=== PATIENT | male | born 1970 | race American Indian/Alaskan Native ===

== ENCOUNTER 2017-10-19 09:24 | Emergency (ER) | payer SELFPAY ==
[2017-10-19 09:29] VITALS: BP 153/103
[2017-10-19] MEDS ORDERED: CLEOCIN IM ONE (10:00)
[2017-10-19] MEDS ORDERED: TORADOL IM ONE (10:00)
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
== END 2017-10-19 10:27 | disposition home or self-care (01) ==
LOC: ED 09:24
DX: K02.9 Dental caries, unspecified (principal); K05.00 Acute gingivitis, plaque induced; F17.200 Nicotine dependence, unspecified, uncomplicated; Z79.899 Other long term (current) drug therapy
CPT/HCPCS: 96372; 99282; J1885

== ENCOUNTER 2018-06-19 14:50 | Emergency (ER) | payer OTHER ==
[2018-06-19 16:06] VITALS: BP 193/110
--- NOTE | 2018-06-19 16:09 | Emergency Department Report ---
Blank Doc - Documentation Documentation: 47 y old male presents to Ed cc of generalized abd pain with vomitting that sta rted today. denies f/diarhea unusual food and liquid. labs ordered ACC evalutae
[2018-06-19 16:40] LABS: Basophils % (Auto) 0.2 % (0.0-1.8); Hematocrit 47.5 % (35.5-45.6); Hemoglobin 16.4 gm/dl (11.8-15.2); Lymphocytes # (Auto) 0.9 K/mm3 (1.2-5.4); Lymphocytes % (Auto) 9.5 % (13.4-35.0); Mean Corpuscular HGB Conc 35 % (32-34); Mean Corpuscular Volume 87 fl (84-94); Monocytes # (Auto) 0.4 K/mm3 (0.0-0.8); Monocytes % (Auto) 4.3 % (0.0-7.3); Platelet Count 244 K/mm3 (140-440)
[2018-06-19] MEDS ORDERED: ZOFRAN IV ONE ×2 (17:37→20:21)
[2018-06-19] MEDS ORDERED: PEPCID IV ONE (17:37)
[2018-06-19] MEDS ORDERED: NACL 0.9% 1000 ML 1,000 ML IV ONE (17:37)
[2018-06-19] MEDS ORDERED: BENTYL IM ONE (17:37)
[2018-06-19 17:43] LABS: Alanine Aminotransferase 34 units/L (7-56); Albumin 4.8 g/dL (3.9-5); BUN/Creatinine Ratio 18; Blood Urea Nitrogen 16 mg/dL (9-20); Calcium 10.1 mg/dL (8.4-10.2); Hemolysis Index 8
[2018-06-19] MEDS ORDERED: MORPHINE IV ONE ×2 (18:21→20:21)
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
[2018-06-19] MEDS ORDERED: MORPHINE ONE (20:25)
--- NOTE | 2018-06-19 21:17 | XRay Report ---
PROCEDURE: XR ABDOMEN 2V TECHNIQUE: Abdominal radiograph, single view. HISTORY: Nausea, Vomiting and Diarrhea COMPARISONS: None . FINDINGS: Bowel gas pattern: Nonobstructive . Masses or calcifications: There is been previous cholecystectomy. There is a 7 mm metallic foreign o bject overlying the upper mid abdomen, this is of uncertain etiology. . Bony structures: No significant abnormality . Other: None . IMPRESSION: The bowel gas pattern is nonobstructive.. This document is electronically signed by Chandni Maki DO., June 19 2018 09:15:37 PM ET
== END 2018-06-19 20:36 | disposition left against medical advice (07) ==
LOC: ED 14:50
DX: K86.1 Other chronic pancreatitis (principal)
CPT/HCPCS: 36415; 74019; 80053; 82150; 83690; 85025; 96372; 96374; 96375; 96376; 99284; G0480; J0500; J2270; J2405; J7030; 80320

== ENCOUNTER 2019-02-23 09:35 | Emergency (ER) | payer SELFPAY ==
[2019-02-23 10:01] LABS: Basophils % (Auto) 0.6 % (0.0-1.8); Eosinophils % (Auto) 0.1 % (0.0-4.3); Hematocrit 48.5 % (35.5-45.6); Lymphocytes # (Auto) 2.4 K/mm3 (1.2-5.4); Lymphocytes % (Auto) 36.8 % (13.4-35.0); Mean Corpuscular HGB Conc 33 % (32-34); Mean Corpuscular Volume 85 fl (84-94); Monocytes # (Auto) 0.5 K/mm3 (0.0-0.8); Monocytes % (Auto) 7.4 % (0.0-7.3); Platelet Count 251 K/mm3 (140-440); Red Cell Distribution Width 14.5 % (13.2-15.2)
[2019-02-23] MEDS ORDERED: hydrALAZINE 20 MG/1 ML INJ IV ONE (10:08)
[2019-02-23] MEDS ORDERED: SODIUM CHLORIDE 0.9% 500 ML 500 ML IV ONE (10:08)
[2019-02-23] MEDS ORDERED: ONDANSETRON 4 MG/2 ML INJ IV ONE (10:08)
[2019-02-23] MEDS ORDERED: MORPHINE 4 MG/1 ML INJ IV ONE (10:08)
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
[2019-02-23 10:25] LABS: Alanine Aminotransferase 24 units/L (7-56); Albumin 4.8 g/dL (3.9-5); BUN/Creatinine Ratio 14; Blood Urea Nitrogen 10 mg/dL (9-20); Calcium 10.1 mg/dL (8.4-10.2); Hemolysis Index 4
--- NOTE | 2019-02-23 12:44 | Cat Scan Report ---
CT ABDOMEN AND PELVIS WITH CONTRAST INDICATION / CLINICAL INFORMATION: abd pain n/v pancreatitis. TECHNIQUE: Axial CT images were obtained through the abdomen and pelvis after IV contrast. All CT scans at this location are performed using CT dose reduction for ALARA by means of automated exposure control. COMPARISON: None available. FINDINGS: LOWER CHEST: No significant abnormality. Pleural scarring left hemithorax LIVER: No significant abnormality. GALLBLADDER: Evidence of previous cholecystectomy BILE DUCTS: No significant abnormality. PANCREAS: Again noted calcifications have been consistent with chronic pancreatitis. Slight reticulat ion of fat is present surrounding the body and tail the pancreas which raises concern of acute pancre atitis SPLEEN: No significant abnormality. ADRENALS: No significant abnormality. RIGHT KIDNEY and URETER: No significant abnormality. LEFT KIDNEY and URETER: No significant abnormality. STOMACH and SMALL BOWEL: No significant abnormality. COLON: No significant abnormality. APPENDIX: No significant abnormality. PERITONEUM: No free fluid. No free air. No fluid collection. LYMPH NODES: No significant adenopathy. AORTA and ARTERIES: No significant abnormality. IVC and VEINS: No significant abnormality. URINARY BLADDER: No significant abnormality. REPRODUCTIVE ORGANS: No significant abnormality. ADDITIONAL FINDINGS: None. SKELETAL SYSTEM: No significant abnormality. IMPRESSION: 1. Questionable recurrent acute pancreatitis superimposed on chronic calcific pancreatitis 2. Previous cholecystectomy Signer Name: Matteo Wynn MD Signed: 02/23/2019 12:40 PM Workstation Name: [id number]
[2019-02-23 13:03] LABS: Bilirubin,Urine NEG (Negative); Blood,Urine MOD (Negative); Color,Urine Yellow (Yellow); Mucus,Urine FEW /HPF; Urobilinogen,Urine < 2.0 mg/dL (<2.0); WBC,Urine < 1.0 /HPF (0.0-6.0)
[2019-02-23 13:13] VITALS: BP 173/108
== END 2019-02-23 13:14 | disposition home or self-care (01) ==
LOC: ED 09:35
DX: K85.90 Acute pancreatitis without necrosis or infection, unspecified (principal); R11.2 Nausea with vomiting, unspecified; F17.200 Nicotine dependence, unspecified, uncomplicated; F10.10 Alcohol abuse, uncomplicated; Z79.899 Other long term (current) drug therapy
CPT/HCPCS: 36415; 74177; 80053; 81001; 82550; 83690; 83735; 85025; 93005; 93010; 96361; 96374; 96375; 99284; J0360; J2270; J2405; J7040; Q9967

== ENCOUNTER 2019-05-13 22:15 | Emergency (ER) | payer SELFPAY ==
[2019-05-14 00:07] LABS: Hemoglobin 16.1 gm/dl (11.8-15.2); Mean Corpuscular HGB Conc 34 % (32-34); Mean Corpuscular Volume 84 fl (84-94); Platelet Count 266 K/mm3 (140-440); Red Blood Count 5.69 M/mm3 (3.65-5.03)
[2019-05-14 00:18] LABS: Alanine Aminotransferase 24 units/L (7-56); Albumin 4.8 g/dL (3.9-5); BUN/Creatinine Ratio 9; Blood Urea Nitrogen 9 mg/dL (9-20); Calcium 10.7 mg/dL (8.4-10.2); Hemolysis Index 14
[2019-05-14] MEDS ORDERED: LIDOCAINE VISCOUS 2% 15 ML ORAL LIQD PO ONE (00:54)
[2019-05-14] MEDS ORDERED: ALUM-MAG HYDROXIDE-SIMETHICONE 200-200-20MG/5ML ORAL LIQD 30 ML PO ONE (00:54)
[2019-05-14] MEDS ORDERED: MORPHINE 4 MG/1 ML INJ IV ONE (00:54)
[2019-05-14] MEDS ORDERED: ONDANSETRON 4 MG/2 ML INJ IV ONE (00:54)
[2019-05-14] MEDS ORDERED: SODIUM CHLORIDE 0.9% 1000 ML 1,000 ML IV ONE (00:54)
[2019-05-14 01:23] LABS: Bilirubin,Urine NEG (Negative); Blood,Urine SM (Negative); Color,Urine Straw (Yellow); Protein,Urine <15 mg/dL mg/dL (Negative); Urobilinogen,Urine < 2.0 mg/dL (<2.0)
[2019-05-14 02:11] LABS: Eosinophils % (Manual) 0 % (0.0-4.3); Total Cells Counted 100
[2019-05-14 02:12] LABS: Burr Cells Few; Platelet Estimate Consistent w Auto
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
[2019-05-14 02:48] VITALS: BP 153/96
== END 2019-05-14 03:18 | disposition home or self-care (01) ==
LOC: ED 22:15
DX: R10.10 Upper abdominal pain, unspecified (principal); E72.51 Non-ketotic hyperglycinemia
CPT/HCPCS: 36415; 80053; 81001; 82962; 83690; 85007; 85025; 96361; 96374; 96375; 99284; J2270; J2405; J7030

== ENCOUNTER 2019-07-20 10:18 | Inpatient (IN) | payer OTHER ==
[2019-07-20] MEDS ORDERED: ONDANSETRON 4 MG/2 ML INJ ONE ×2 (10:28→17:34)
[2019-07-20] MEDS ORDERED: ONDANSETRON 4 MG/2 ML INJ IV ONE (10:34)
[2019-07-20] MEDS ORDERED: hydrALAZINE 20 MG/1 ML INJ IV ONE ×2 (10:37→14:01)
[2019-07-20] MEDS ORDERED: MORPHINE 4 MG/1 ML INJ IV ONE (10:37)
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
[2019-07-20 10:56] LABS: Basophils # (Auto) 0.1 K/mm3 (0.0-0.1); Basophils % (Auto) 0.7 % (0.0-1.8); Hematocrit 43.4 % (35.5-45.6); Hemoglobin 14.5 gm/dl (11.8-15.2); Lymphocytes # (Auto) 1.2 K/mm3 (1.2-5.4); Mean Corpuscular HGB Conc 33 % (32-34); Mean Corpuscular Volume 84 fl (84-94); Monocytes # (Auto) 0.4 K/mm3 (0.0-0.8); Monocytes % (Auto) 4.2 % (0.0-7.3); Platelet Count 234 K/mm3 (140-440); Red Blood Count 5.16 M/mm3 (3.65-5.03)
[2019-07-20 11:22] LABS: Alanine Aminotransferase 20 units/L (7-56); Albumin 4.8 g/dL (3.9-5); BUN/Creatinine Ratio 14; Bilirubin,Direct 0.2 mg/dL (0-0.2); Blood Urea Nitrogen 11 mg/dL (9-20); Calcium 9.8 mg/dL (8.4-10.2); Hemolysis Index 2
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
[2019-07-20] MEDS ORDERED: THIAMINE 100 MG, FOLIC ACID 1 MG, MULTIPLE VITAMIN INJ, ADULT 10 ML in SODIUM CHLORIDE ... IV ONE (12:00)
[2019-07-20] MEDS ORDERED: METOCLOPRAMIDE 10 MG/2 ML INJ ONE (12:16)
[2019-07-20] MEDS ORDERED: METOCLOPRAMIDE 10 MG/2 ML INJ IV ONE (12:19)
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
[2019-07-20] MEDS ORDERED: PIPERACIL/TAZOBACTA 4.5/NS 100 4.5 GM/100 ML VIAL IV ONE (14:15)
[2019-07-20 14:47] LABS: Bilirubin,Urine NEG (Negative); Blood,Urine MOD (Negative); Color,Urine Straw (Yellow); Mucus,Urine FEW /HPF; Protein,Urine <15 mg/dL mg/dL (Negative); Urobilinogen,Urine < 2.0 mg/dL (<2.0)
[2019-07-20] MEDS ORDERED: HYDROmorphone 1 MG/1 ML INJ IV PRN (16:44)
[2019-07-20] MEDS ORDERED: ACETAMINOPHEN 325 MG TAB PO PRN (16:44)
[2019-07-20] MEDS ORDERED: cloNIDine TTS 0.2 MG/24 HR PATCH TD SCH (17:00)
[2019-07-20] MEDS ORDERED: hydrALAZINE 20 MG/1 ML INJ ONE (17:34)
[2019-07-20] MEDS: ONDANSETRON 4 MG/2 ML INJ IV PRN (17:45)
[2019-07-20] MEDS: hydrALAZINE 20 MG/1 ML INJ IV PRN ×2 (17:47→22:35)
[2019-07-20] MEDS: D5W/0.9% NACL 1,000 ML IV SCH (18:34)
[2019-07-20] MEDS: HYDROmorphone 1 MG/1 ML INJ IV PRN ×2 (18:47→22:34)
[2019-07-20] MEDS: FAMOTIDINE 20 MG/2 ML INJ IV SCH (22:35)
[2019-07-21 04:45] LABS: Basophils % (Auto) 0.5 % (0.0-1.8); Hematocrit 43.3 % (35.5-45.6); Hemoglobin 14.6 gm/dl (11.8-15.2); Lymphocytes # (Auto) 1.8 K/mm3 (1.2-5.4); Lymphocytes % (Auto) 19.1 % (13.4-35.0); Mean Corpuscular HGB Conc 34 % (32-34); Mean Corpuscular Volume 84 fl (84-94); Monocytes # (Auto) 1.1 K/mm3 (0.0-0.8); Monocytes % (Auto) 11.5 % (0.0-7.3); Platelet Count 228 K/mm3 (140-440); Red Blood Count 5.15 M/mm3 (3.65-5.03); Red Cell Distribution Width 15.1 % (13.2-15.2)
[2019-07-21 05:04] LABS: Alanine Aminotransferase 15 units/L (7-56); Albumin 4.5 g/dL (3.9-5); BUN/Creatinine Ratio 13; Blood Urea Nitrogen 9 mg/dL (9-20); Calcium 9.1 mg/dL (8.4-10.2); Hemolysis Index 4
[2019-07-21] MEDS: HYDROmorphone 1 MG/1 ML INJ IV PRN ×4 (05:36→23:24)
[2019-07-21] MEDS: hydrALAZINE 20 MG/1 ML INJ IV PRN ×2 (05:37→23:24)
[2019-07-21] MEDS: ONDANSETRON 4 MG/2 ML INJ IV PRN ×2 (05:37→23:25)
[2019-07-21] MEDS: D5W/0.9% NACL 1,000 ML IV SCH ×3 (05:38→18:33)
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
[2019-07-21] MEDS ORDERED: LORazepam 2 MG/ML VIAL IV PRN ×2 (08:58)
[2019-07-21] MEDS: POTASSIUM CHLORIDE 10 MEQ 10 MEQ/100 ML BAG IV SCH (09:05)
[2019-07-21] MEDS: FAMOTIDINE 20 MG/2 ML INJ IV SCH ×2 (09:05→21:20)
[2019-07-21] MEDS: HEPARIN 5,000 UNIT/1 ML VIAL SUB-Q SCH ×2 (09:18→21:20)
[2019-07-21] MEDS: INSULIN LISPRO 100 UNIT/ML SUB-Q SCH ×3 (09:19→18:32)
--- NOTE | 2019-07-21 15:18 | Progress Note ---
Assessment and Plan Assessment and plan: Acute pancreatitis due to alcohol abuse Patient was kept n.p.o. Start full liquid diet Pain control IV normal saline for dehydration Lipase is in mid 900s Consult GI Type 2 diabetes mellitus Coverage for now Primary team to travel counselor him about this diabetes and the hemoglobin A1c being high 7.5 Primary team to initiate oral hypoglycemics at the time of discharge Dietitian consult regarding diet for diabetes Hypertensive urgency BP medications initiated and hydralazine 10 mg IV every 3 as needed for blood pressure more than 160/100 DVT prophylaxis On heparin and GI prophylaxis he feels better. Poss dc home tomorrow if less abd pain, tolerating diet. History Interval history: less abdominal pain Hospitalist Physical - Physical exam Narrative exam: GEN: Not in acute distress, obese, lying in bed HEENT: Normocephalic, atraumatic, Neck: supple, No JVD Lungs: Clear to auscultation bilaterally, heart;S1 and S2 reg, no murmurs, rubs or gallop Abd:soft, mild tender, no rebound, non distended, normal bowel sounds, Ext: No edema, no clubbing, no cyanosis, Neuro: Awake,alert,oriented X3 , no focal signs, - Constitutional Vitals: Temp Pulse Resp BP Pulse Ox 99.0 F 82 20 149/78 96 07/21/19 12:43 07/21/19 12:43 07/21/19 12:43 07/21/19 12:43 07/21/19 12:43 Results - Labs CBC & Chem 7: 07/21/19 03:49 07/22/19 04:34 Labs: Laboratory Last Values WBC 9.7 K/mm3 (4.5-11.0) 07/21/19 03:49 RBC 5.15 M/mm3 (3.65-5.03) H 07/21/19 03:49 Hgb 14.6 gm/dl (11.8-15.2) 07/21/19 03:49 Hct 43.3 % (35.5-45.6) 07/21/19 03:49 MCV 84 fl (84-94) 07/21/19 03:49 MCH 28 pg (28-32) 07/21/19 03:49 MCHC 34 % (32-34) 07/21/19 03:49 RDW 15.1 % (13.2-15.2) 07/21/19 03:49 Plt Count 228 K/mm3 (140-440) 07/21/19 03:49 Lymph % (Auto) 19.1 % (13.4-35.0) 07/21/19 03:49 [place] % (Auto) 11.5 % (0.0-7.3) H 07/21/19 03:49 Eos % (Auto) 0.0 % (0.0-4.3) 07/21/19 03:49 Baso % (Auto) 0.5 % (0.0-1.8) 07/21/19 03:49 Lymph # 1.8 K/mm3 (1.2-5.4) 07/21/19 03:49 [place] # 1.1 K/mm3 (0.0-0.8) H 07/21/19 03:49 Eos # 0.0 K/mm3 (0.0-0.4) 07/21/19 03:49 Baso # 0.0 K/mm3 (0.0-0.1) 07/21/19 03:49 Seg Neutrophils % 68.9 % (40.0-70.0) 07/21/19 03:49 Seg Neutrophils # 6.6 K/mm3 (1.8-7.7) 07/21/19 03:49 Sodium 136 mmol/L (137-145) L 07/21/19 03:49 Potassium 3.3 mmol/L (3.6-5.0) L 07/21/19 03:49 Chloride 99.1 mmol/L (98-107) 07/21/19 03:49 Carbon Dioxide 22 mmol/L (22-30) 07/21/19 03:49 Anion Gap 18 mmol/L 07/21/19 03:49 BUN 9 mg/dL (9-20) 07/21/19 03:49 Creatinine 0.7 mg/dL (0.8-1.5) L 07/21/19 03:49 Estimated GFR > 60 ml/min 07/21/19 03:49 BUN/Creatinine Ratio 13 % 07/21/19 03:49 Glucose 200 mg/dL (75-100) H 07/21/19 03:49 POC Glucose 150 (70-105) H 07/21/19 12:09 Hemoglobin A1c 7.2 % (4-6) H 07/21/19 03:49 Calcium 9.1 mg/dL (8.4-10.2) 07/21/19 03:49 Total Bilirubin 0.60 mg/dL (0.1-1.2) 07/21/19 03:49 Direct Bilirubin 0.2 mg/dL (0-0.2) 07/20/19 10:43 Indirect Bilirubin 0.6 mg/dL 07/20/19 10:43 AST 21 units/L (5-40) 07/21/19 03:49 ALT 15 units/L (7-56) 07/21/19 03:49 Alkaline Phosphatase 99 units/L (35-129) 07/21/19 03:49 Total Protein 7.5 g/dL (6.3-8.2) 07/21/19 03:49 Albumin 4.5 g/dL (3.9-5) 07/21/19 03:49 Albumin/Globulin Ratio 1.5 % 07/21/19 03:49 Lipase 510 units/L (13-60) H 07/21/19 03:49 Urine Color Straw (Yellow) 07/20/19 14:10 Urine Turbidity Clear (Clear) 07/20/19 14:10 Urine pH 5.0 (5.0-7.0) 07/20/19 14:10 Ur Specific [place] 1.045 (1.003-1.030) H 07/20/19 14:10 Urine Protein <15 mg/dl mg/dL (Negative) 07/20/19 14:10 Urine Glucose (UA) Neg mg/dL (Negative) 07/20/19 14:10 Urine Ketones Tr mg/dL (Negative) 07/20/19 14:10 Urine Blood Mod (Negative) 07/20/19 14:10 Urine Nitrite Neg (Negative) 07/20/19 14:10 Urine Bilirubin Neg (Negative) 07/20/19 14:10 Urine Urobilinogen < 2.0 mg/dL (<2.0) 07/20/19 14:10 Ur Leukocyte Esterase Neg (Negative) 07/20/19 14:10 Urine WBC (Auto) 2.0 /HPF (0.0-6.0) 07/20/19 14:10 Urine RBC (Auto) 16.0 /HPF (0.0-6.0) 07/20/19 14:10 U Epithel Cells (Auto) < 1.0 /HPF (0-13.0) 07/20/19 14:10 Urine Mucus Few /HPF 07/20/19 14:10 Plasma/Serum Alcohol < 0.01 % (0-0.07) 07/20/19 11:04 [place]/IV: Voiding Method Urinal IV Catheter Type [Right Peripheral IV Antecubital] Active Medications - Current Medications Current Medications: Generic Name Dose Route Start Last Admin Trade Name Freq PRN Reason Stop Dose Admin Acetaminophen 650 mg 07/20/19 16:44 Tylenol PO Q4H PRN Pain MILD(1-3)/Fever >100.5/WOODS Clonidine HCl 0.2 mg 07/20/19 17:00 07/20/19 17:46 Catapres-Tts Patch TD 0.2 mg Tu CHERYL Administration Famotidine 20 mg 07/20/19 22:00 07/21/19 09:05 Pepcid IV 20 mg BID CHERYL Administration Heparin Sodium (Porcine) 5,000 unit 07/21/19 10:00 07/21/19 09:18 Heparin SUB-Q 5,000 unit Q12HR CHERYL Administration Hydralazine HCl 10 mg 07/20/19 16:47 07/21/19 05:37 Apresoline IV 10 mg Q3H PRN Administration HTN >160/100 Hydromorphone HCl 0.25 mg 07/20/19 16:44 Dilaudid IV Q3H PRN Pain, Moderate (4-6) Hydromorphone HCl 1 mg 07/20/19 16:44 07/21/19 14:57 Dilaudid IV 1 mg Q3H PRN Administration Pain , Severe (7-10) Dextrose/Sodium Chloride 1,000 mls @ 100 mls/hr 07/20/19 17:00 07/21/19 05:38 D5ns IV 100 mls/hr DIRECT CHERYL Administration Insulin Human Lispro 0 unit 07/21/19 09:00 07/21/19 12:22 Humalog SUB-Q Not Given Q6HR CHERYL Protocol Lorazepam 2 mg 07/21/19 08:58 Ativan IV Q1H PRN CIWA-Ar 8-15 Lorazepam 4 mg 07/21/19 08:58 Ativan IV Q1H PRN CIWA-Ar 16-25 Ondansetron HCl 4 mg 07/20/19 16:44 07/21/19 05:37 Zofran IV 4 mg Q8H PRN Administration Nausea And Vomiting Sodium Chloride 10 ml 07/20/19 22:00 07/21/19 09:05 Sodium Chloride Flush Syringe 10 Ml IV 10 ml BID CHERYL Administration Sodium Chloride 10 ml 07/20/19 16:44 Sodium Chloride Flush Syringe 10 Ml IV PRN PRN LINE FLUSH Nutrition/Malnutrition Assess - Dietary Evaluation Nutrition/Malnutrition Findings: Nutrition Notes Start: 07/21/19 13:43 Freq: Status: Active Protocol: Document 07/21/19 13:43 LM (Rec: 07/21/19 13:57 LM [id number]) Nutrition Notes Need for Assessment generated from: MD Order Current Diagnosis Hypertension Other Pertinent Diagnosis acute pancreatitis, ETOH dependence Current Diet Full liquid Labs/Tests Na 136 K 3.3 BG 200 Pertinent Medications Humalog KCl at 100ml/hr Height 5 ft 9 in Weight 83.46 kg [place] Body Weight (kg) 72.72 BMI 27.1 Weight Status Overweight Subjective/Other Information MD consult for diet education and ONS. Pt NPO at time of assessment. 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 UBW is between 180- 190lb. Pt not interested in diet education at this time. Will order Glucerna for pt. Burn Absent Trauma Absent Current % PO Negligible Minimum of two criteria No physical signs of malnutrition #1 Nutrition Diagnosis Inadequate oral intake Etiology acute pancreatitis As Evidenced by Signs and Symptoms pt on full liquid diet Is patient on ventilator? No Is Patient Ambulatory and/or Out of Bed Yes REE-([facility]-ambulatory/OOB) [ [id number] [id number]] Calculation Used for Recommendations [facility] Additional Notes Protein: 66-83g (0.8-1g/kg) Fluid: 1 ml/kcal Nutrition Intervention Change Diet Order: continue full liquid until able to advance diet Add Supplement/Snack (indicate name/kcal Glucerna daily /protein ) Provides kCal: 220 Provides Protein (gm) 10 Goal #1 Diet advancement Anticipated Discharge Needs: consistent CHO Follow-Up By: 07/23/19 Additional Comments F/U for diet advancement intakes
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
[2019-07-21] MEDS: metFORMIN 500 MG TAB PO SCH ×2 (18:32→21:27)
[2019-07-21] MEDS ORDERED: NON-FORMULARY EACH (Famotidine [Pepcid] 40 MG) PO SCH (22:00)
[2019-07-21] MEDS ORDERED: FAMOTIDINE 20 MG TAB PO SCH (22:00)
[2019-07-22] MEDS: INSULIN LISPRO 100 UNIT/ML SUB-Q SCH ×3 (00:53→13:50)
[2019-07-22 05:14] LABS: BUN/Creatinine Ratio 10; Blood Urea Nitrogen 7 mg/dL (9-20); Calcium 9.1 mg/dL (8.4-10.2); Hemolysis Index 4
[2019-07-22] MEDS: HYDROmorphone 1 MG/1 ML INJ IV PRN ×2 (05:55→13:49)
[2019-07-22] MEDS: HEPARIN 5,000 UNIT/1 ML VIAL SUB-Q SCH (09:38)
[2019-07-22] MEDS: FAMOTIDINE 20 MG/2 ML INJ IV SCH (09:39)
[2019-07-22] MEDS: metFORMIN 500 MG TAB PO SCH (09:39)
--- NOTE | 2019-07-22 10:23 | Discharge Summary ---
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 2.Avoid alcohol Follow up with: PRIMARY CARE,MD [Primary Care Provider] - 3-5 Days Prescriptions: traMADoL [Ultram 50 MG tab] 50 mg PO Q6HR PRN #10 tablet PRN Reason: Pain
[2019-07-22 12:52] VITALS: BP 146/91
[2019-07-22] MEDS: ONDANSETRON 4 MG/2 ML INJ IV PRN (13:49)
== END 2019-07-22 15:26 | disposition home or self-care (01) | DRG 440 ==
LOC: ED 10:18 → 4A 14:21
PROVIDERS: ADMIT Internal Medicine; ATTEND Internal Medicine
DX: K85.20 Alcohol induced acute pancreatitis without necrosis or infection (principal); I16.0 Hypertensive urgency; F17.210 Nicotine dependence, cigarettes, uncomplicated; F10.20 Alcohol dependence, uncomplicated; Y90.9 Presence of alcohol in blood, level not specified; E11.9 Type 2 diabetes mellitus without complications; Z90.49 Acquired absence of other specified parts of digestive tract; Z82.49 Family history of ischemic heart disease and other diseases of the circulatory system
CPT/HCPCS: 36415; 74019; 74177; 80048; 80053; 80076; 80320; 81001; 82962; 83036; 83690; 85025; G0378; G0480; J0360; J1170; J1644; J2270; J2405; J2543; J2765; J3411; J3480; J7030; J7042; Q9967

== ENCOUNTER 2019-11-04 17:00 | Emergency (ER) | payer SELFPAY ==
[2019-11-04 18:04] LABS: Basophils # (Auto) 0.1 K/mm3 (0.0-0.1); Basophils % (Auto) 0.8 % (0.0-1.8); Eosinophils % (Auto) 0.1 % (0.0-4.3); Hemoglobin 14.9 gm/dl (11.8-15.2); Lymphocytes % (Auto) 27.8 % (13.4-35.0); Mean Corpuscular HGB Conc 34 % (32-34); Mean Corpuscular Volume 85 fl (84-94); Monocytes # (Auto) 0.5 K/mm3 (0.0-0.8); Monocytes % (Auto) 7.8 % (0.0-7.3); Platelet Count 269 K/mm3 (140-440); Red Blood Count 5.21 M/mm3 (3.65-5.03); Red Cell Distribution Width 14.5 % (13.2-15.2)
[2019-11-04 18:24] LABS: Alanine Aminotransferase 78 units/L (7-56); Albumin 4.6 g/dL (3.9-5); BUN/Creatinine Ratio 9; Blood Urea Nitrogen 18 mg/dL (9-20); Calcium 10.1 mg/dL (8.4-10.2); Hemolysis Index 59
[2019-11-05] MEDS ORDERED: SODIUM CHLORIDE 0.9% 1000 ML 1,000 ML IV ONE ×3 (03:11→04:09)
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
[2019-11-05] MEDS ORDERED: FUROSEMIDE 20 MG/2 ML INJ IV ONE (04:09)
[2019-11-05 05:32] LABS: Bilirubin,Urine NEG (Negative); Blood,Urine NEG (Negative); Color,Urine Yellow (Yellow); Protein,Urine <15 mg/dL mg/dL (Negative); Urobilinogen,Urine < 2.0 mg/dL (<2.0)
[2019-11-05 06:32] LABS: BUN/Creatinine Ratio 14; Blood Urea Nitrogen 17 mg/dL (9-20); Hemolysis Index 10
[2019-11-05 06:56] VITALS: BP 155/109
== END 2019-11-05 07:07 | disposition home or self-care (01) ==
LOC: ED 17:00
DX: E11.65 Type 2 diabetes mellitus with hyperglycemia (principal); E86.0 Dehydration; N28.9 Disorder of kidney and ureter, unspecified; I10 Essential (primary) hypertension; F17.200 Nicotine dependence, unspecified, uncomplicated; Z79.899 Other long term (current) drug therapy
CPT/HCPCS: 36415; 80048; 80053; 81001; 82805; 82962; 84484; 85025; 93005; 96361; 96374; 99284; J1940; J7030

== ENCOUNTER 2020-05-29 14:03 | Inpatient (IN) | payer OTHER ==
--- NOTE | 2020-05-29 15:20 | Emergency Department Report ---
Blank Doc - Documentation Documentation: This is a 49-year-old male that presents with generalized body aches, dark-col ored urine, abdominal pain with nausea vomiting times several days. Patient has history of diabetes, pancreatitis. Patient stated had alcoholic beverage. 1- This initial assessment/diagnostic orders/clinical plan/ treatment(s) is/are subject to change based on pt's health status, clinical progression and re- assessment by fellow clinical providers in the ED. Further treatment and workup at subsequent clinical provers discretion. Patient/guardians urged not to elope from ED as their condition may be serious if not clinically assessed and managed. 2-labs 3-UA
[2020-05-29 15:52] LABS: Basophils # (Auto) 0.1 K/mm3 (0.0-0.1); Basophils % (Auto) 0.6 % (0.0-1.8); Eosinophils % (Auto) 0.1 % (0.0-4.3); Hematocrit 53.3 % (35.5-45.6); Hemoglobin 17.8 gm/dl (11.8-15.2); Lymphocytes # (Auto) 2.5 K/mm3 (1.2-5.4); Mean Corpuscular HGB Conc 33 % (32-34); Mean Corpuscular Volume 87 fl (84-94); Monocytes # (Auto) 0.7 K/mm3 (0.0-0.8); Platelet Count 253 K/mm3 (140-440); Red Blood Count 6.15 M/mm3 (3.65-5.03); Red Cell Distribution Width 13.7 % (13.2-15.2)
[2020-05-29 16:13] LABS: Alanine Aminotransferase 14 units/L (7-56); Albumin 4.5 g/dL (3.9-5); BUN/Creatinine Ratio 12; Blood Urea Nitrogen 11 mg/dL (9-20); Calcium 10.4 mg/dL (8.4-10.2); Hemolysis Index 4
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
[2020-05-29] MEDS ORDERED: fentaNYL 100 MCG/2 ML INJ IV ONE ×2 (19:01→21:11)
[2020-05-29] MEDS ORDERED: SODIUM CHLORIDE 0.9% 1000 ML 1,000 ML IV ONE ×2 (19:01→19:05)
[2020-05-29] MEDS ORDERED: ONDANSETRON 4 MG/2 ML INJ IV ONE (19:01)
[2020-05-29 20:00] LABS: Bilirubin,Urine NEG (Negative); Blood,Urine MOD (Negative); Color,Urine Amber (Yellow); Urobilinogen,Urine < 2.0 mg/dL (<2.0)
--- NOTE | 2020-05-29 20:00 | History and Physical Report ---
History of Present Illness Date of admission: 05/29/20 19:04 History of present illness: The patient is a 49-year-old male present with a chief complaint of abdominal pain. The patient states 2 days ago after drinking 2-3 beers and eating salad he developed periumbilical abdominal pain described as an intermittent cramping. Patient states he developed nausea and vomiting. Patient states his symptoms persisted the following day and today prompting him to come to the emergency department. Patient states he was diagnosed with pancreatitis 2 times in the past most recent which occurred last year Past History Past Medical History: hyperlipidemia Medications and Allergies Allergies Allergy/AdvReac Type Severity Reaction Status Date / Time No Known Allergies Allergy Verified 11/04/19 17:08 Home Medications Medication Instructions Recorded Confirmed Last Taken Type Famotidine [Pepcid] 20 mg PO BID #13 tablet 10/29/19 05/29/20 Unknown Rx Lisinopril [Zestril] 5 mg PO DAILY 05/29/20 05/29/20 Unknown History metFORMIN [Glucophage] 500 mg PO DAILY 05/29/20 05/29/20 Unknown History Active Meds: Active Medications Sodium Chloride (Nacl 0.9% 1000 Ml) 1,000 mls @ 999 mls/hr IV ONCE ONE Stop: 05/29/20 20:01 Last Admin: 05/29/20 19:45 Dose: 999 mls/hr Documented by: Sodium Chloride (Nacl 0.9% 1000 Ml) 1,000 mls @ 125 mls/hr IV ONCE ONE Stop: 05/30/20 03:04 Last Admin: 05/29/20 19:45 Dose: 125 mls/hr Documented by: Exam - Constitutional Vitals: Temp Pulse Resp BP Pulse Ox 98.4 F 73 16 149/108 99 05/29/20 15:08 05/29/20 18:29 05/29/20 18:29 05/29/20 18:29 05/29/20 18:29 General appearance: Present: no acute distress, well-nourished - EENT Eyes: Present: PERRL ENT: hearing intact, clear oral mucosa - Neck Neck: Present: supple, normal ROM - Respiratory Respiratory effort: normal Respiratory: bilateral: CTA - Cardiovascular Heart Sounds: Present: S1 & S2. Absent: rub, click - Extremities Extremities: pulses symmetrical, No edema Peripheral Pulses: within normal limits - Abdominal General gastrointestinal: Present: soft, non-tender, non-distended, normal bowel sounds Male genitourinary: Present: normal - Integumentary Integumentary: Present: clear, warm, dry - Musculoskeletal Musculoskeletal: gait normal, strength equal bilaterally - Psychiatric Psychiatric: appropriate mood/affect, intact judgment & insight - Neurologic Neurologic: CNII-XII intact, moves all extremities Results - Labs CBC & Chem 7: 05/29/20 15:23 05/29/20 15:23 Labs: Abnormal lab results 05/29/20 05/29/20 05/29/20 Range/Units 15:23 15:23 15:23 RBC 6.15 H (3.65-5.03) M/mm3 Hgb 17.8 H (11.8-15.2) gm/dl Hct 53.3 H (35.5-45.6) % [place] % (Auto) 8.0 H (0.0-7.3) % Sodium 135 L (137-145) mmol/L Chloride 96.1 L (98-107) mmol/L Glucose 164 H (75-100) mg/dL Calcium 10.4 H (8.4-10.2) mg/dL Total Creatine Kinase 174 H (55-170) units/L Total Protein 8.3 H (6.3-8.2) g/dL Lipase 371 H (13-60) units/L Assessment and Plan - Patient Problems (1) Acute abdominal pain Current Visit: Yes Status: Acute
[2020-05-29 20:07] LABS: Mucus,Urine 3+ /HPF
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
[2020-05-29] MEDS ORDERED: traMADol 50 MG TAB PO PRN (20:41)
[2020-05-29] MEDS ORDERED: traZODone 50 MG TAB PO PRN (20:41)
[2020-05-29] MEDS ORDERED: ONDANSETRON 4 MG/2 ML INJ IV PRN ×2 (20:44→20:47)
[2020-05-29] MEDS ORDERED: ALUM-MAG HYDROXIDE-SIMETHICONE 200-200-20MG/5ML ORAL LIQD 30 ML PO PRN (20:44)
[2020-05-29] MEDS ORDERED: SENNOSIDES 8.6 MG TAB PO PRN (20:47)
[2020-05-29] MEDS ORDERED: ACETAMINOPHEN 325 MG TAB PO PRN (20:47)
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
[2020-05-29] MEDS: hydrALAZINE 20 MG/1 ML INJ IV PRN ×2 (22:06→23:04)
[2020-05-30] MEDS: FAMOTIDINE 20 MG/2 ML INJ IV SCH ×3 (01:22→21:59)
[2020-05-30] MEDS: MORPHINE 2 MG/1 ML INJ IV PRN ×3 (04:43→19:46)
[2020-05-30 05:03] LABS: Basophils % (Auto) 0.6 % (0.0-1.8); Hematocrit 48.7 % (35.5-45.6); Hemoglobin 16.7 gm/dl (11.8-15.2); Lymphocytes # (Auto) 2.1 K/mm3 (1.2-5.4); Lymphocytes % (Auto) 26.6 % (13.4-35.0); Mean Corpuscular HGB Conc 34 % (32-34); Mean Corpuscular Volume 85 fl (84-94); Monocytes # (Auto) 0.7 K/mm3 (0.0-0.8); Monocytes % (Auto) 8.3 % (0.0-7.3); Platelet Count 225 K/mm3 (140-440); Red Blood Count 5.71 M/mm3 (3.65-5.03); Red Cell Distribution Width 13.5 % (13.2-15.2)
[2020-05-30 05:19] LABS: Alanine Aminotransferase 22 units/L (7-56); Blood Urea Nitrogen 9 mg/dL (9-20); Calcium 9.3 mg/dL (8.4-10.2); Hemolysis Index 44
[2020-05-30 05:20] LABS: BUN/Creatinine Ratio 13
[2020-05-30] MEDS: INSULIN REGULAR, HUMAN 100 UNITS/1 ML SUB-Q SCH ×3 (07:00→22:00)
[2020-05-30] MEDS: SODIUM CHLORIDE 0.9% 1000 ML 1,000 ML IV SCH ×2 (07:21→16:55)
[2020-05-30] MEDS ORDERED: ENOXAPARIN 30 MG/0.3 ML INJ SUB-Q SCH (10:00)
[2020-05-30] MEDS: ENOXAPARIN 40 MG/0.4 ML INJ SUB-Q SCH (10:08)
[2020-05-30] MEDS: LISINOPRIL 5 MG TAB PO SCH (10:08)
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
[2020-05-31] MEDS: MORPHINE 2 MG/1 ML INJ IV PRN ×3 (02:05→17:18)
[2020-05-31] MEDS: hydrALAZINE 20 MG/1 ML INJ IV PRN (02:05)
[2020-05-31] MEDS: INSULIN REGULAR, HUMAN 100 UNITS/1 ML SUB-Q SCH ×3 (07:51→17:28)
[2020-05-31] MEDS: SODIUM CHLORIDE 0.9% 1000 ML 1,000 ML IV SCH ×2 (07:56)
[2020-05-31] MEDS: LISINOPRIL 5 MG TAB PO SCH (09:17)
[2020-05-31] MEDS: FAMOTIDINE 20 MG/2 ML INJ IV SCH (09:50)
[2020-05-31] MEDS: ENOXAPARIN 40 MG/0.4 ML INJ SUB-Q SCH (09:50)
[2020-05-31 11:39] LABS: BUN/Creatinine Ratio 13; Blood Urea Nitrogen 10 mg/dL (9-20); Hemolysis Index 43
[2020-05-31 12:18] VITALS: BP 144/90
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
== END 2020-05-31 18:10 | disposition home or self-care (01) | DRG 439 ==
LOC: ED 14:03 → 3A 19:04 → 4A 23:28
PROVIDERS: ADMIT Internal Medicine; ATTEND Internal Medicine
DX: K85.90 Acute pancreatitis without necrosis or infection, unspecified (principal); E87.1 Hypo-osmolality and hyponatremia; I10 Essential (primary) hypertension; E11.9 Type 2 diabetes mellitus without complications; K21.9 Gastro-esophageal reflux disease without esophagitis; E78.5 Hyperlipidemia, unspecified; Z79.899 Other long term (current) drug therapy; Z82.49 Family history of ischemic heart disease and other diseases of the circulatory system
CPT/HCPCS: 36415; 74177; 80048; 80053; 80320; 81001; 82550; 82805; 82962; 83036; 83690; 85025; G0378; G0480; J0360; J1650; J2270; J2405; J3010; J7030; Q9967

== ENCOUNTER 2020-06-27 19:45 | Emergency (ER) | payer SELFPAY ==
[2020-06-27 21:07] VITALS: BP 114/67
== END 2020-06-28 03:20 | disposition left against medical advice (07) ==
LOC: ED 19:45
DX: R73.9 Hyperglycemia, unspecified (principal); Z53.21 Procedure and treatment not carried out due to patient leaving prior to being seen by health care provider
CPT/HCPCS: 82962

== ENCOUNTER 2020-06-28 21:05 | Emergency (ER) | payer SELFPAY ==
--- NOTE | 2020-06-28 22:50 | Event Note ---
ED Screening Note ED Screening Note: states he is unable to get his BG under control states he is taking metformin only once daily no fever no n/v/d states he has been having lightheadedness, blurry vision, and generalized weakness for a few days states his BG was 500 at work This initial assessment/diagnostic orders/clinical plan/treatment(s) is/are subject to change based on patients health status, clinical progression and re- assessment by fellow clinical providers in the ED. Further treatment and workup at subsequent clinical providers discretion. Patient/guardian urged not to elope from the ED as their condition may be serious if not clinically assessed and managed. Initial orders include: labs, EKG, UA
[2020-06-28 23:29] LABS: Hematocrit 44.9 % (35.5-45.6); Hemoglobin 15.6 gm/dl (11.8-15.2); Mean Corpuscular HGB Conc 35 % (32-34); Mean Corpuscular Volume 84 fl (84-94); Platelet Count 216 K/mm3 (140-440); Red Blood Count 5.35 M/mm3 (3.65-5.03); Red Cell Distribution Width 13.2 % (13.2-15.2)
[2020-06-28 23:50] LABS: Alanine Aminotransferase 19 units/L (7-56); Albumin 4.4 g/dL (3.9-5); BUN/Creatinine Ratio 19; Blood Urea Nitrogen 19 mg/dL (9-20); Calcium 9.4 mg/dL (8.4-10.2); Hemolysis Index 20
[2020-06-29] MEDS ORDERED: INSULIN REGULAR, HUMAN 100 UNITS/1 ML IV ONE (00:40)
[2020-06-29] MEDS ORDERED: SODIUM CHLORIDE 0.9% 1000 ML 1,000 ML IV ONE (00:40)
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
[2020-06-29 02:41] LABS: Bilirubin,Urine NEG (Negative); Blood,Urine MOD (Negative); Color,Urine Straw (Yellow); Mucus,Urine FEW /HPF; Protein,Urine <15 mg/dL mg/dL (Negative); Urobilinogen,Urine < 2.0 mg/dL (<2.0); WBC,Urine < 1.0 /HPF (0.0-6.0)
[2020-06-29 02:56] VITALS: BP 116/78
[2020-06-29 04:38] LABS: Total Cells Counted 100
[2020-06-29 04:39] LABS: Anisocytosis Few; Platelet Estimate Consistent w Auto; Target Cells Few
--- NOTE | 2020-06-30 10:46 | Electrocardiograph Report ---
[facility] Test Date: 2020-06-29 Test Time: 00:39:30 Pat Name: YOJANA WILDER Department: Room: Gender: M Jacquard [employer] Weaver: : 1970 Requested By: CARLINE ARMENDARIZ Order Number: [id number] Reading MD: Salima Feliz Measurements Intervals [place] Rate: 108 P: 66 UT: 153 QRS: 32 QRSD: 65 T: 41 QT: 321 QTc: 432 Interpretive Statements Sinus tachycardia No previous ECG available for comparison Electronically Signed On 06-30-2020 10:45:29 EDT by Salima Feliz
== END 2020-06-29 02:55 | disposition home or self-care (01) ==
LOC: ED 21:05
DX: E11.65 Type 2 diabetes mellitus with hyperglycemia (principal); I10 Essential (primary) hypertension; F17.200 Nicotine dependence, unspecified, uncomplicated; Z79.899 Other long term (current) drug therapy; Z98.890 Other specified postprocedural states
CPT/HCPCS: 36415; 80053; 81001; 82550; 82962; 83690; 83735; 85007; 85025; 93005; 96361; 96374; 99283; J7030; J1815

== ENCOUNTER 2020-09-27 14:52 | Emergency (ER) | payer SELFPAY ==
[2020-09-27 16:01] VITALS: BP 175/102
[2020-09-27 16:32] LABS: Basophils # (Auto) 0.2 K/mm3 (0.0-0.1); Basophils % (Auto) 2.8 % (0.0-1.8); Eosinophils % (Auto) 0.2 % (0.0-4.3); Hematocrit 40.8 % (35.5-45.6); Hemoglobin 13.6 gm/dl (11.8-15.2); Lymphocytes # (Auto) 2.3 K/mm3 (1.2-5.4); Mean Corpuscular HGB Conc 33 % (32-34); Mean Corpuscular Volume 88 fl (84-94); Monocytes # (Auto) 0.5 K/mm3 (0.0-0.8); Monocytes % (Auto) 6.4 % (0.0-7.3); Platelet Count 287 K/mm3 (140-440); Red Blood Count 4.63 M/mm3 (3.65-5.03); Red Cell Distribution Width 15.3 % (13.2-15.2)
[2020-09-27 16:35] LABS: Alanine Aminotransferase 13 units/L (7-56); Albumin 4.4 g/dL (3.9-5); Blood Urea Nitrogen 9 mg/dL (9-20); Hemolysis Index 21
[2020-09-27 16:37] LABS: BUN/Creatinine Ratio 13
[2020-09-27 17:06] LABS: Bilirubin,Urine NEG (Negative); Blood,Urine MOD (Negative); Color,Urine Yellow (Yellow); Hyaline Casts,Urine 3 /LPF; Protein,Urine <15 mg/dL mg/dL (Negative); Urobilinogen,Urine < 2.0 mg/dL (<2.0)
[2020-09-27] MEDS ORDERED: ONDANSETRON 4 MG ODT TAB PO ONE (22:21)
[2020-09-27] MEDS ORDERED: DICYCLOMINE 10 MG/5 ML ORAL LIQD PO ONE (22:21)
[2020-09-27] MEDS ORDERED: FAMOTIDINE 20 MG TAB PO ONE (22:21)
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
== END 2020-09-28 00:15 | disposition home or self-care (01) ==
LOC: ED 14:52
DX: K52.9 Noninfective gastroenteritis and colitis, unspecified (principal); E11.9 Type 2 diabetes mellitus without complications; I10 Essential (primary) hypertension; F17.200 Nicotine dependence, unspecified, uncomplicated; Z79.899 Other long term (current) drug therapy
CPT/HCPCS: 36415; 80053; 81001; 85025; 99283; Q0162

== ENCOUNTER 2020-10-26 15:42 | Emergency (ER) | payer SELFPAY ==
[2020-10-26 17:06] VITALS: BP 127/68
[2020-10-26 17:28] LABS: Bilirubin,Urine NEG (Negative); Blood,Urine SM (Negative); Color,Urine Yellow (Yellow); Mucus,Urine FEW /HPF; Protein,Urine <15 mg/dL mg/dL (Negative); Urobilinogen,Urine < 2.0 mg/dL (<2.0)
[2020-10-26 17:48] LABS: Basophils # (Auto) 0.1 K/mm3 (0.0-0.1); Basophils % (Auto) 1.2 % (0.0-1.8); Eosinophils % (Auto) 0.4 % (0.0-4.3); Hematocrit 41.5 % (35.5-45.6); Hemoglobin 13.8 gm/dl (11.8-15.2); Lymphocytes # (Auto) 2.9 K/mm3 (1.2-5.4); Mean Corpuscular HGB Conc 33 % (32-34); Mean Corpuscular Volume 88 fl (84-94); Monocytes # (Auto) 0.5 K/mm3 (0.0-0.8); Monocytes % (Auto) 8.1 % (0.0-7.3); Platelet Count 264 K/mm3 (140-440); Red Blood Count 4.72 M/mm3 (3.65-5.03); Red Cell Distribution Width 14.3 % (13.2-15.2)
[2020-10-26 18:06] LABS: Alanine Aminotransferase 11 units/L (7-56); Albumin 4.4 g/dL (3.9-5); Blood Urea Nitrogen 8 mg/dL (9-20); Calcium 10.1 mg/dL (8.4-10.2); Hemolysis Index 18
[2020-10-26 18:12] LABS: BUN/Creatinine Ratio 11
[2020-10-26] MEDS ORDERED: SODIUM CHLORIDE 0.9% 1000 ML 1,000 ML IV ONE (20:07)
[2020-10-26] MEDS ORDERED: ONDANSETRON 4 MG/2 ML INJ IV ONE (20:07)
[2020-10-26] MEDS ORDERED: FAMOTIDINE 20 MG/2 ML INJ IV ONE (20:07)
[2020-10-26] MEDS ORDERED: PROCHLORPERAZINE EDISYLATE 10 MG/2 ML VIAL IV ONE (21:49)
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
== END 2020-10-26 23:55 | disposition home or self-care (01) ==
LOC: ED 15:42
DX: A08.4 Viral intestinal infection, unspecified (principal); I10 Essential (primary) hypertension; E11.9 Type 2 diabetes mellitus without complications; F17.200 Nicotine dependence, unspecified, uncomplicated
CPT/HCPCS: 36415; 80053; 81001; 82962; 85025; 96361; 96374; 96375; 99283; J0780; J2405; J7030

== ENCOUNTER 2020-11-03 08:14 | Emergency (ER) | payer SELFPAY ==
[2020-11-03 08:55] VITALS: BP 117/75
[2020-11-03 09:45] LABS: Basophils # (Auto) 0.1 K/mm3 (0.0-0.1); Basophils % (Auto) 1.2 % (0.0-1.8); Hematocrit 41.8 % (35.5-45.6); Hemoglobin 14.4 gm/dl (11.8-15.2); Lymphocytes # (Auto) 1.4 K/mm3 (1.2-5.4); Lymphocytes % (Auto) 33.6 % (13.4-35.0); Mean Corpuscular HGB Conc 35 % (32-34); Mean Corpuscular Volume 87 fl (84-94); Monocytes # (Auto) 0.4 K/mm3 (0.0-0.8); Monocytes % (Auto) 9.7 % (0.0-7.3); Platelet Count 288 K/mm3 (140-440); Red Blood Count 4.79 M/mm3 (3.65-5.03); Red Cell Distribution Width 13.9 % (13.2-15.2)
[2020-11-03 09:51] LABS: Alanine Aminotransferase 424 units/L (7-56); Albumin 4.4 g/dL (3.9-5); BUN/Creatinine Ratio 15; Blood Urea Nitrogen 15 mg/dL (9-20); Calcium 10.3 mg/dL (8.4-10.2); Hemolysis Index 5
[2020-11-03] MEDS ORDERED: MORPHINE 4 MG/1 ML INJ IV ONE (10:18)
[2020-11-03] MEDS ORDERED: SODIUM CHLORIDE 0.9% 1000 ML 1,000 ML IV ONE ×2 (10:18→15:00)
[2020-11-03] MEDS ORDERED: ONDANSETRON 4 MG/2 ML INJ IV ONE (10:18)
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
[2020-11-03 12:38] LABS: Hepatitis C Virus Antibody Non-Reactive (NonReactive)
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
[2020-11-03 13:45] LABS: Hepatitis B Surface Antigen Nonreactive (Negative)
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
[2020-11-03] MEDS ORDERED: SODIUM CHLORIDE 0.9% 1000 ML 3,000 ML IV ONE (14:51)
--- NOTE | 2020-11-03 20:26 | Event Note ---
Date: 11/03/20 50-year-old male with alcohol dependence complicated by chronic pancreatitis presents to ED for evaluation of abdominal pain. Patient seen and evaluated in the emergency department. All lab and imaging were reviewed. Patient counseled regarding alcohol cessation. Patient acknowledges understanding instructions. Patient left AMA prior to completion of diagnostic testing. Patient informed of risk of worsening symptoms and even . Patient knowledges understanding instructions. Patient left AMA.
== END 2020-11-03 19:01 | disposition left against medical advice (07) ==
LOC: ED 08:14
DX: K85.10 Biliary acute pancreatitis without necrosis or infection (principal); I10 Essential (primary) hypertension; E11.9 Type 2 diabetes mellitus without complications; F17.200 Nicotine dependence, unspecified, uncomplicated; Z79.899 Other long term (current) drug therapy; Z98.890 Other specified postprocedural states
CPT/HCPCS: 36415; 74177; 80053; 80074; 83690; 85025; 96361; 96374; 96375; 99284; J2270; J2405; J7030; Q9967; 80320; G0480

== ENCOUNTER 2020-11-04 07:43 | Inpatient (IN) | payer OTHER ==
[2020-11-04] MEDS ORDERED: MORPHINE 4 MG/1 ML INJ IV ONE (10:20)
[2020-11-04] MEDS ORDERED: SODIUM CHLORIDE 0.9% 1000 ML 1,000 ML IV ONE (10:20)
[2020-11-04] MEDS ORDERED: ONDANSETRON 4 MG/2 ML INJ IV ONE (10:20)
[2020-11-04 10:55] LABS: Basophils % (Auto) 1.2 % (0.0-1.8); Eosinophils % (Auto) 1.7 % (0.0-4.3); Hematocrit 40.5 % (35.5-45.6); Lymphocytes # (Auto) 1.2 K/mm3 (1.2-5.4); Lymphocytes % (Auto) 45.2 % (13.4-35.0); Mean Corpuscular HGB Conc 35 % (32-34); Mean Corpuscular Volume 88 fl (84-94); Monocytes # (Auto) 0.3 K/mm3 (0.0-0.8); Monocytes % (Auto) 9.2 % (0.0-7.3); Platelet Count 276 K/mm3 (140-440); Red Blood Count 4.62 M/mm3 (3.65-5.03)
[2020-11-04 11:10] LABS: Alanine Aminotransferase 401 units/L (7-56); Albumin 4.1 g/dL (3.9-5); Blood Urea Nitrogen 6 mg/dL (9-20); Calcium 10.1 mg/dL (8.4-10.2); Hemolysis Index 1
[2020-11-04 11:12] LABS: BUN/Creatinine Ratio 10
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
--- NOTE | 2020-11-04 12:45 | Ultrasound Report ---
ULTRASOUND ABDOMEN, LIMITED (RIGHT UPPER QUADRANT) INDICATION: RUQ pain, elevated LFTs. COMPARISON: CT previous day. FINDINGS: Pancreas: Pancreatic calcifications or ductal dilatation. Liver: Prominent size. Internal echogenicity seen at the portal vein with residual flow.. Gallbladder: Normal. Bile ducts: Dilated Common Bile Duct measures $9.5 million. mm. Free fluid: None. Additional Findings: Right renal cyst. IMPRESSION: 1. Dilated pancreatic duct and common bile duct. 2. Pancreatic calcifications compatible chronic pancreatitis. 3. Nonocclusive portal vein thrombus. Signer Name: Jay Sousa MD Signed: 11/04/2020 12:41 PM Workstation Name: [id number]
[2020-11-04] MEDS ORDERED: ENOXAPARIN 40 MG/0.4 ML INJ SUB-Q ONE (13:45)
--- NOTE | 2020-11-04 13:47 | Event Note ---
Date: 11/04/20 50 year old male with alcoholic pancreatitis and interval development of a portal vein thrombus since 07/19 to 11/03 CT scan with thrombus also noted on US performed on 11/04. Contacted by ER for management. This is complicated situation given underlying pancreatitis. There is a risk for hemorrhagic transformation with anticoagulation. I recommend that this diagnosis requires admission and hematology/oncology consult. Until consult performed, recommend lovenox 40 mg SC daily.
--- NOTE | 2020-11-04 14:16 | History and Physical Report ---
History of Present Illness Chief complaint: My stomach has been hurting History of present illness: 50 YO Male with Chronic Pancreatitis, ETOH Dependence, Nicotine Dependence, HTN, DM presents to ED for evaluation. Patient reports "my stomach has been hurting". Patient states that he has experienced pain in his abdomen over the past 3 days. Patient states the pain is intermittent, last for several minutes at a time. Patient acknowledges nausea. Pt transported to [facility] for further care and evaluation of the aforementioned symptoms. Pt seen and evaluated in ED for further care and evaluation of the aforementioned symptoms. Pt underwent Ultrasound of the abdomen and found to have Portal Vein thrombosis. Interv entional radiology consulted in ED. Hematology/oncology service consulted in ED. Patient was seen and evaluated on 11/03/2020 and was found to have chronic pancreatitis. Patient left AMA prior to completion of work-up. Patient returns to ED today for reevaluation. Patient denies fever, chills, chest pain, palpitation, productive cough, skin rash, recent ill contacts, known exposure to COVID-19. Patient initiated on anticoagulation. No prior admission for review. No medication listed at time of admission for reconciliation. Past History Past Medical History: diabetes, hypertension, other (See HPI) Past Surgical History: Other (Splenectomy, left arm surgery) Social history: single, smoking, alcohol abuse Family history: diabetes, hypertension Medications and Allergies Allergies Allergy/AdvReac Type Severity Reaction Status Date / Time No Known Allergies Allergy Verified 11/04/20 07:56 Home Medications Medication Instructions Recorded Confirmed Last Taken Type Lisinopril [Zestril] 5 mg PO DAILY 05/29/20 05/29/20 Unknown History metFORMIN [Glucophage] 500 mg PO DAILY 05/29/20 05/29/20 Unknown History busPIRone [Buspar] 10 mg PO BID #60 tab 05/31/20 Unknown Rx lisinopriL [Zestril TAB] 10 mg PO QDAY 90 Days #90 tablet 05/31/20 Unknown Rx traMADoL [Ultram] 50 mg PO Q6HR PRN #28 tablet 05/31/20 Unknown Rx Dicyclomine [Bentyl] 20 mg PO BID #30 tablet 09/27/20 Unknown Rx Famotidine [Pepcid] 20 mg PO BID #30 tablet 09/27/20 Unknown Rx Pantoprazole Sodium [Protonix] 40 mg PO QDAY 30 Days #30 09/27/20 Unknown Rx granpberry. Famotidine [Pepcid] 20 mg PO BID #30 tablet 10/26/20 Unknown Rx Ondansetron [Zofran Odt] 4 mg PO Q6HR PRN #20 tab.rapdis 10/26/20 Unknown Rx Review of Systems Constitutional: no weight loss, no weight gain, no fever, no chills Ears, nose, mouth and throat: no ear pain, no ear discharge, no tinnitis, no nose pain, no nasal congestion, no sinus pressure Cardiovascular: no chest pain, no orthopnea, no rapid/irregular heart beat, no edema Respiratory: no cough, no cough with sputum, no hemoptysis, no shortness of breath Gastrointestinal: abdominal pain, nausea, no vomiting, no diarrhea, no constipation, no change in bowel habits Genitourinary Male: no hematuria, no flank pain, no discharge, no urinary frequency, no urinary hesitancy Rectal: no pain, no incontinence, no bleeding Musculoskeletal: no neck stiffness, no neck pain, no shooting arm pain, no arm numbness/tingling, no low back pain Integumentary: no rash, no pruritis, no redness, no sores, no boils Neurological: no head injury, no paralysis, no weakness, no parathesias, no numbness, no tingling, no syncope Psychiatric: no anxiety, no change in sleep habits, no sleep disturbances, no hallucinations Endocrine: no cold intolerance, no heat intolerance, no polyphagia, no excessive thirst, no polydipsia Hematologic/Lymphatic: no easy bruising, no easy bleeding, no lymphedema Allergic/Immunologic: no urticaria, no allergic rhinitis, no wheezing, no persistent infections, no anaphylaxis Exam - Constitutional Vitals: Temp Pulse Resp BP Pulse Ox 97.9 F 91 H 18 120/80 100 11/04/20 07:54 11/04/20 07:54 11/04/20 07:54 11/04/20 07:54 11/04/20 07:54 General appearance: Present: mild distress - EENT Eyes: Present: PERRL ENT: hearing intact, clear oral mucosa - Neck Neck: Present: supple, normal ROM - Respiratory Respiratory effort: normal Respiratory: bilateral: CTA - Cardiovascular Heart Sounds: Present: S1 & S2. Absent: rub, click - Extremities Extremities: pulses symmetrical, No edema Peripheral Pulses: within normal limits - Abdominal General gastrointestinal: Present: soft, tender, normal bowel sounds Male genitourinary: Present: normal - Integumentary Integumentary: Present: clear, warm, dry - Musculoskeletal Musculoskeletal: gait normal, strength equal bilaterally - Psychiatric Psychiatric: appropriate mood/affect, intact judgment & insight - Neurologic Neurologic: CNII-XII intact, moves all extremities Results - Labs CBC & Chem 7: 11/04/20 10:30 11/04/20 10:30 Labs: Abnormal lab results 11/04/20 11/04/20 Range/Units 10:30 10:30 WBC 2.7 L (4.5-11.0) K/mm3 MCHC 35 H (32-34) % Lymph % (Auto) 45.2 H (13.4-35.0) % Sunflower % (Auto) 9.2 H (0.0-7.3) % Seg Neutrophils # 1.2 L (1.8-7.7) K/mm3 Sodium 135 L (137-145) mmol/L BUN 6 L (9-20) mg/dL Creatinine 0.6 L (0.8-1.3) mg/dL Total Bilirubin 3.50 H (0.1-1.2) mg/dL AST 473 H (5-40) units/L ALT 401 H (7-56) units/L Alkaline Phosphatase 558 H (35-129) units/L Lipase 408 H (13-60) units/L Assessment and Plan - Patient Problems (1) Portal vein thrombosis Current Visit: Yes Status: Acute Plan to address problem: Interventional radiology consulted, anticoagulation as per interventional ra diology recommendations, hematology team consulted, supportive care, repeat liver function test in a.m. Liver function tests are trending down. (2) Chronic pancreatitis Current Visit: Yes Status: Acute Qualifiers: Pancreatitis type: alcohol induced Qualified Code(s): K86.0 - Alcohol- induced chronic pancreatitis Plan to address problem: IV fluid resuscitation therapy, advance diet as tolerated, supportive care, bowel rest, pain control. (3) Hypertension Current Visit: Yes Status: Acute Qualifiers: Hypertension type: primary hypertension Qualified Code(s): I10 - Essential (primary) hypertension Plan to address problem: Monitor blood pressure every shift, continue medical management (4) Diabetes Current Visit: Yes Status: Acute Plan to address problem: Sliding-scale insulin therapy, Accu-Chek, consistent carbohydrate diet. (5) ETOH abuse Current Visit: Yes Status: Acute Plan to address problem: Thiamine, folic acid, multivitamin, supportive care, outpatient AA follow-up, patient counseled regarding abstinence from alcohol ingestion. Patient knowledges understanding instructions. (6) Nicotine dependence Current Visit: Yes Status: Acute Qualifiers: Nicotine product type: cigarettes Substance use status: in withdrawal Qualified Code(s): F17.213 - Nicotine dependence, cigarettes, with withdrawal Plan to address problem: Smoking cessation counseling, supportive care, behavior change counseling, +15 minutes. (7) DVT prophylaxis Current Visit: Yes Status: Acute Plan to address problem: SCD to bilateral lower extremities while in bed, prophylactic anticoagulation
[2020-11-04 14:56] LABS: INR 0.91 (0.87-1.13)
[2020-11-04 14:57] LABS: Partial Thromboplastin Time 32.6 Sec. (24.2-36.6)
[2020-11-04] MEDS ORDERED: HYDROmorphone 1 MG/1 ML INJ IV PRN (15:06)
[2020-11-04] MEDS ORDERED: ALBUTEROL 2.5 MG/3 ML NEBU IH PRN (15:06)
[2020-11-04] MEDS ORDERED: ONDANSETRON 4 MG/2 ML INJ IV PRN ×3 (15:06→15:14)
[2020-11-04] MEDS ORDERED: oxyCODONE /ACETAMINOPHEN 5-325MG TAB PO PRN (15:06)
[2020-11-04] MEDS ORDERED: ONDANSETRON 4 MG ODT TAB PO PRN (15:10)
[2020-11-04] MEDS ORDERED: ACETAMINOPHEN 325 MG TAB PO PRN ×2 (15:13→15:42)
[2020-11-04] MEDS ORDERED: IBUPROFEN 600 MG TAB PO PRN (15:14)
[2020-11-04] MEDS: HYDROmorphone 1 MG/1 ML INJ IV PRN (21:00)
[2020-11-04] MEDS ORDERED: FAMOTIDINE 20 MG TAB PO SCH (22:00)
[2020-11-04] MEDS: DICYCLOMINE 20 MG TAB PO SCH (23:27)
[2020-11-04] MEDS: busPIRone 10 MG TAB PO SCH (23:27)
[2020-11-04] MEDS: oxyCODONE /ACETAMINOPHEN 5-325MG TAB PO PRN (23:50)
--- NOTE | 2020-11-05 08:47 | Hem/Onc Consultation ---
History of Present Illness - History of Present Illness hematology data review consult requested for portal vein thrombosis 50yo AA man with h/o alcohol dependence, h/o traumatic injury requiring splenectomy eval for several days abd pain and nausea and vomiting found to have elevated liver enzymes and lipase, abn imaging c/w biliary and pancreatic ductal dilitation and pancfratic calcifications. Found to have evidence of portal vein partial occlusion data reviewed below alcohol level low 8/6 IMP presumed clotting tendency, now with evidence of "partial" portal vein thrombosis this is probably not the cause of his symptoms; probably not the cause of elevaled liver enzymes this clotting can be "secondary" to acute/chronic pancreatitis risk>benefit for "full dose" anticoagulation or "long-term" anticoagulation elevated liver enzymes could be due to alcohol-associated hepatitis doubt solid tumor malignancy nl coags and HCT-doubt he has bleeding tendency borderline low neutrophils-partly due to "ethnic neutropenia"-doubt heme malignancy REC: low dose lovenox while in hospital consider eliquis 2.5mg po bid for one month after discharge consider GI eval inpatient; consider MRCP labs to include Hgb electophoresis opiate meds needed for pain Active Medications Folic Acid (Folic Acid 1 Mg Tab) 1 mg PO QDAY [facility] Hydromorphone HCl (Hydromorphone 1 Mg/1 Ml Inj) 0.5 mg IV Q8H PRN PRN Reason: Pain , Severe (7-10) Last Admin: 11/04/20 21:00 Dose: 0.5 mg Documented by: Ibuprofen (Ibuprofen 600 Mg Tab) 600 mg PO Q6H PRN PRN Reason: Pain, Mild (1-3) Lisinopril (Lisinopril 5 Mg Tab) 5 mg PO DAILY [facility] Multivitamins (Multivitamins ,Therapeutic Tab) 1 each PO QDAY [facility] Ondansetron HCl (Ondansetron 4 Mg/2 Ml Inj) 4 mg IV Q8H PRN PRN Reason: Nausea And Vomiting Oxycodone/Acetaminophen (Oxycodone /Acetaminophen 5-325mg Tab) 1 tab PO Q24H PRN PRN Reason: Pain, Moderate (4-6) Last Admin: 11/04/20 23:50 Dose: 1 tab Documented by: Pantoprazole Sodium (Pantoprazole 40 Mg Tab) 40 mg PO DAILY [facility] Home Medications Medication Instructions Recorded Confirmed Last Taken Lisinopril [Zestril] 5 mg PO DAILY 05/29/20 11/05/20 Unknown metFORMIN [Glucophage] 500 mg PO DAILY 05/29/20 11/05/20 Unknown Laboratory Last Values WBC 2.7 K/mm3 (4.5-11.0) L 11/04/20 10:30 Hgb 14.0 gm/dl (11.8-15.2) 11/04/20 10:30 Hct 40.5 % (35.5-45.6) 11/04/20 10:30 MCV 88 fl (84-94) 11/04/20 10:30 Plt Count 276 K/mm3 (140-440) 11/04/20 10:30 Seg Neutrophils % 42.7 % (40.0-70.0) 11/04/20 10:30 Seg Neutrophils # 1.2 K/mm3 (1.8-7.7) L 11/04/20 10:30 PT 12.8 Sec. (12.2-14.9) 11/04/20 13:58 INR 0.91 (0.87-1.13) 11/04/20 13:58 APTT 32.6 Sec. (24.2-36.6) 11/04/20 13:58 Calcium 10.1 mg/dL (8.4-10.2) 11/04/20 10:30 Total Bilirubin 3.50 mg/dL (0.1-1.2) H 11/04/20 10:30 AST 473 units/L (5-40) H 11/04/20 10:30 ALT 401 units/L (7-56) H 11/04/20 10:30 Alkaline Phosphatase 558 units/L (35-129) H 11/04/20 10:30 Albumin 4.1 g/dL (3.9-5) 11/04/20 10:30 Lipase 408 units/L (13-60) H 11/04/20 10:30 Past History Past Medical History: diabetes, hypertension, other (See HPI) Past Surgical History: Other (Splenectomy, left arm surgery) Social history: single, smoking, alcohol abuse Family history: diabetes, hypertension Medications and Allergies Allergies Allergy/AdvReac Type Severity Reaction Status Date / Time No Known Allergies Allergy Verified 11/04/20 07:56 Home Medications Medication Instructions Recorded Confirmed Last Taken Type Lisinopril [Zestril] 5 mg PO DAILY 05/29/20 11/05/20 Unknown History metFORMIN [Glucophage] 500 mg PO DAILY 05/29/20 11/05/20 Unknown History busPIRone [Buspar] 10 mg PO BID #60 tab 05/31/20 11/05/20 Unknown Rx lisinopriL [Zestril TAB] 10 mg PO QDAY 90 Days #90 tablet 05/31/20 11/05/20 Unknown Rx traMADoL [Ultram] 50 mg PO Q6HR PRN #28 tablet 05/31/20 11/05/20 Unknown Rx Dicyclomine [Bentyl] 20 mg PO BID #30 tablet 09/27/20 11/05/20 Unknown Rx Famotidine [Pepcid] 20 mg PO BID #30 tablet 09/27/20 11/05/20 Unknown Rx Pantoprazole Sodium [Protonix] 40 mg PO QDAY 30 Days #30 09/27/20 11/05/20 Unknown Rx granpkt. Famotidine [Pepcid] 20 mg PO BID #30 tablet 10/26/20 11/05/20 Unknown Rx Ondansetron [Zofran Odt] 4 mg PO Q6HR PRN #20 tab.rapdis 10/26/20 11/05/20 Unknown Rx Active Meds: Active Medications Acetaminophen (Acetaminophen 325 Mg Tab) 650 mg PO Q12H PRN PRN Reason: Pain MILD(1-3)/Fever >100.5/WOODS Albuterol (Albuterol 2.5 Mg/3 Ml Nebu) 2.5 mg IH Q4HRT PRN PRN Reason: Shortness Of Breath Buspirone HCl (Buspirone 10 Mg Tab) 10 mg PO BID [facility] Last Admin: 11/04/20 23:27 Dose: 10 mg Documented by: Dicyclomine HCl (Dicyclomine 20 Mg Tab) 20 mg PO BID [facility] Last Admin: 11/04/20 23:27 Dose: 20 mg Documented by: Folic Acid (Folic Acid 1 Mg Tab) 1 mg PO QDAY [facility] Hydromorphone HCl (Hydromorphone 1 Mg/1 Ml Inj) 0.5 mg IV Q8H PRN PRN Reason: Pain , Severe (7-10) Last Admin: 11/04/20 21:00 Dose: 0.5 mg Documented by: Ibuprofen (Ibuprofen 600 Mg Tab) 600 mg PO Q6H PRN PRN Reason: Pain, Mild (1-3) Lisinopril (Lisinopril 5 Mg Tab) 5 mg PO DAILY [facility] Multivitamins (Multivitamins ,Therapeutic Tab) 1 each PO QDAY [facility] Ondansetron HCl (Ondansetron 4 Mg/2 Ml Inj) 4 mg IV Q8H PRN PRN Reason: Nausea And Vomiting Oxycodone/Acetaminophen (Oxycodone /Acetaminophen 5-325mg Tab) 1 tab PO Q24H PRN PRN Reason: Pain, Moderate (4-6) Last Admin: 11/04/20 23:50 Dose: 1 tab Documented by: Pantoprazole Sodium (Pantoprazole 40 Mg Tab) 40 mg PO DAILY [facility] Sodium Chloride (Sodium Chloride 0.9% 10 Ml Flush Syringe) 10 ml IV BID [facility] Last Admin: 11/04/20 23:27 Dose: 10 ml Documented by: Sodium Chloride (Sodium Chloride 0.9% 10 Ml Flush Syringe) 10 ml IV PRN PRN PRN Reason: LINE FLUSH Thiamine HCl (Thiamine 100 Mg Tab) 100 mg PO QDAY [facility] Exam - Constitutional Vitals: Last Vital Signs Temp 97.5 F L 11/04/20 22:00 Pulse 56 L 11/04/20 22:00 Resp 20 11/04/20 22:00 BP 105/65 11/04/20 22:00 Pulse Ox 99 11/05/20 01:38 Results - Labs lab Results: Laboratory Results - last 24 hr 11/04/20 11/04/20 11/04/20 10:30 10:30 13:58 WBC 2.7 L RBC 4.62 Hgb 14.0 Hct 40.5 MCV 88 MCH 30 MCHC 35 H RDW 14.0 Plt Count 276 Lymph % (Auto) 45.2 H [place] % (Auto) 9.2 H Eos % (Auto) 1.7 Baso % (Auto) 1.2 Lymph # (Auto) 1.2 [place] # (Auto) 0.3 Eos # (Auto) 0.0 Baso # (Auto) 0.0 Seg Neutrophils % 42.7 Seg Neutrophils # 1.2 L PT 12.8 INR 0.91 APTT 32.6 Sodium 135 L Potassium 4.8 Chloride 98.6 Carbon Dioxide 26 Anion Gap 15 BUN 6 L Creatinine 0.6 L Estimated GFR > 60 BUN/Creatinine Ratio 10 Glucose 98 Calcium 10.1 Total Bilirubin 3.50 H AST 473 H ALT 401 H Alkaline Phosphatase 558 H Total Protein 7.3 Albumin 4.1 Albumin/Globulin Ratio 1.3 Lipase 408 H
[2020-11-05] MEDS: MULTIVITAMINS ,THERAPEUTIC TAB PO SCH ×2 (08:53→12:56)
[2020-11-05] MEDS: THIAMINE 100 MG TAB PO SCH ×2 (08:53→12:56)
[2020-11-05] MEDS: LISINOPRIL 5 MG TAB PO SCH ×2 (08:54→12:55)
[2020-11-05] MEDS: FOLIC ACID 1 MG TAB PO SCH ×2 (08:54→12:54)
[2020-11-05] MEDS: oxyCODONE /ACETAMINOPHEN 5-325MG TAB PO PRN (09:03)
[2020-11-05] MEDS ORDERED: NON-FORMULARY EACH (Pantoprazole Sodium [Protonix] 40 MG Granpkt.Dr) PO SCH (10:00)
[2020-11-05 11:16] LABS: Basophils % (Auto) 0.9 % (0.0-1.8); Eosinophils # (Auto) 0.1 K/mm3 (0.0-0.4); Eosinophils % (Auto) 2.6 % (0.0-4.3); Hematocrit 38.2 % (35.5-45.6); Hemoglobin 13.3 gm/dl (11.8-15.2); Lymphocytes # (Auto) 1.5 K/mm3 (1.2-5.4); Lymphocytes % (Auto) 41.3 % (13.4-35.0); Mean Corpuscular HGB Conc 35 % (32-34); Mean Corpuscular Volume 88 fl (84-94); Monocytes # (Auto) 0.3 K/mm3 (0.0-0.8); Monocytes % (Auto) 8.1 % (0.0-7.3); Platelet Count 256 K/mm3 (140-440); Red Blood Count 4.36 M/mm3 (3.65-5.03); Red Cell Distribution Width 13.8 % (13.2-15.2)
[2020-11-05 11:32] LABS: Alanine Aminotransferase 309 units/L (7-56); Albumin 3.8 g/dL (3.9-5); Blood Urea Nitrogen 7 mg/dL (9-20); Calcium 9.8 mg/dL (8.4-10.2); Hemolysis Index 4
[2020-11-05 11:34] LABS: BUN/Creatinine Ratio 12
[2020-11-05] MEDS: DICYCLOMINE 20 MG TAB PO SCH ×2 (12:04→23:19)
[2020-11-05] MEDS: busPIRone 10 MG TAB PO SCH ×2 (12:04→23:19)
[2020-11-05] MEDS: HYDROmorphone 1 MG/1 ML INJ IV PRN ×2 (12:38→20:17)
--- NOTE | 2020-11-05 14:11 | Progress Note ---
Assessment and Plan Assessment and plan: -- Portal vein thrombosis Current Visit: Yes Status: Acute Evaluation noted and appreciated Hematology, GI evaluation requested --History of chronic pancreatitis Current Visit: Yes Status: Acute IV fluid resuscitation therapy, pain management advance diet as tolerated, supportive care, --Hypertension Current Visit: Yes Status: Acute Continue current antihypertensives As needed medications --Type II diabetes Current Visit: Yes Status: Acute Sliding-scale insulin therapy, Accu-Chek, consistent carbohydrate diet. --Transaminitis/alcoholic liver disease; Current Visit: Yes Status: Acute Closely monitor LFTs Counseled patient to quit alcohol intake GI consulted, supportive care --History of ETOH abuse Current Visit: Yes Status: Acute Thiamine, folic acid, multivitamin, supportive care, Strongly advised to quit alcohol intake , advised to seek alcohol rehabilitation And attend [facility] support group as outpatient --Alcohol withdrawal symptoms;/closely monitor Current Visit: Yes Status: Acute No withdrawal symptoms at this point Initiate CIWA protocol if needed --Nicotine dependence Current Visit: Yes Status: Acute Smoking cessation counseling, Nicotine patch as needed --DVT prophylaxis Current Visit: Yes Status: Acute Subcu Lovenox, SCDs We will closely monitor the patient and adjust management as needed Plan of care reviewed with the patient and his nurse Hospital Liaison recommendations noted and appreciated History Interval history: I have seen and examined the patient at the bedside this morning Patient's chart and medications reviewed Patient complains of mild abdominal pain and nausea Anxious to go home Vital signs noted Hospitalist Physical - Constitutional Vitals: Temp Pulse Resp BP Pulse Ox 97.5 F L 55 L 20 116/78 99 11/04/20 22:00 11/05/20 08:54 11/04/20 22:00 11/05/20 08:54 11/05/20 10:00 General appearance: Present: mild distress, well-nourished - EENT Eyes: Present: PERRL, EOM intact - Neck Neck: Present: supple, normal ROM - Respiratory Respiratory effort: normal Respiratory: bilateral: diminished, rales, negative: rhonchi, wheezing - Cardiovascular Rhythm: regular Heart Sounds: Present: S1 & S2 - Extremities Extremities: no ischemia, No edema - Abdominal General gastrointestinal: soft, tender (No guarding no rigidity, vague tenderness), non-distended, normal bowel sounds - Integumentary Integumentary: Present: clear, warm - Psychiatric Psychiatric: appropriate mood/affect, cooperative - Neurologic Neurologic: CNII-XII intact, moves all extremities Results - Labs CBC & Chem 7: 11/05/20 10:29 11/05/20 10:29 Labs: Laboratory Last Values WBC 3.7 K/mm3 (4.5-11.0) L 11/05/20 10:29 RBC 4.36 M/mm3 (3.65-5.03) 11/05/20 10:29 Hgb 13.3 gm/dl (11.8-15.2) 11/05/20 10:29 Hct 38.2 % (35.5-45.6) 11/05/20 10:29 MCV 88 fl (84-94) 11/05/20 10:29 MCH 31 pg (28-32) 11/05/20 10:29 MCHC 35 % (32-34) H 11/05/20 10:29 RDW 13.8 % (13.2-15.2) 11/05/20 10:29 Plt Count 256 K/mm3 (140-440) 11/05/20 10:29 Lymph % (Auto) 41.3 % (13.4-35.0) H 11/05/20 10:29 [place] % (Auto) 8.1 % (0.0-7.3) H 11/05/20 10:29 Eos % (Auto) 2.6 % (0.0-4.3) 11/05/20 10:29 Baso % (Auto) 0.9 % (0.0-1.8) 11/05/20 10:29 Lymph # (Auto) 1.5 K/mm3 (1.2-5.4) 11/05/20 10:29 [place] # (Auto) 0.3 K/mm3 (0.0-0.8) 11/05/20 10:29 Eos # (Auto) 0.1 K/mm3 (0.0-0.4) 11/05/20 10:29 Baso # (Auto) 0.0 K/mm3 (0.0-0.1) 11/05/20 10:29 Seg Neutrophils % 47.1 % (40.0-70.0) 11/05/20 10:29 Seg Neutrophils # 1.7 K/mm3 (1.8-7.7) L 11/05/20 10:29 PT 12.8 Sec. (12.2-14.9) 11/04/20 13:58 INR 0.91 (0.87-1.13) 11/04/20 13:58 APTT 32.6 Sec. (24.2-36.6) 11/04/20 13:58 Sodium 134 mmol/L (137-145) L 11/05/20 10:29 Potassium 4.5 mmol/L (3.6-5.0) 11/05/20 10:29 Chloride 98.4 mmol/L (98-107) 11/05/20 10:29 Carbon Dioxide 26 mmol/L (22-30) 11/05/20 10:29 Anion Gap 14 mmol/L 11/05/20 10:29 BUN 7 mg/dL (9-20) L 11/05/20 10:29 Creatinine 0.6 mg/dL (0.8-1.3) L 11/05/20 10:29 Estimated GFR > 60 ml/min 11/05/20 10:29 BUN/Creatinine Ratio 12 % 11/05/20 10:29 Glucose 219 mg/dL (75-100) H 11/05/20 10:29 Calcium 9.8 mg/dL (8.4-10.2) 11/05/20 10:29 Total Bilirubin 2.20 mg/dL (0.1-1.2) H 11/05/20 10:29 AST 267 units/L (5-40) H 11/05/20 10:29 ALT 309 units/L (7-56) H 11/05/20 10:29 Alkaline Phosphatase 544 units/L (35-129) H 11/05/20 10:29 Total Protein 6.8 g/dL (6.3-8.2) 11/05/20 10:29 Albumin 3.8 g/dL (3.9-5) L 11/05/20 10:29 Albumin/Globulin Ratio 1.3 % 11/05/20 10:29 Lipase 408 units/L (13-60) H 11/04/20 10:30 [place]/IV: Voiding Method Toilet Active Medications - Current Medications Current Medications: Generic Name Dose Route Start Last Admin Trade Name Freq PRN Reason Stop Dose Admin Acetaminophen 650 mg 11/04/20 15:42 Acetaminophen 325 Mg Tab PO Q12H PRN Pain MILD(1-3)/Fever >100.5/WOODS Albuterol 2.5 mg 11/04/20 15:06 Albuterol 2.5 Mg/3 Ml Nebu IH Q4HRT PRN Shortness Of Breath Buspirone HCl 10 mg 11/04/20 22:00 11/05/20 12:04 Buspirone 10 Mg Tab PO 10 mg BID [facility] Administration Dicyclomine HCl 20 mg 11/04/20 22:00 11/05/20 12:04 Dicyclomine 20 Mg Tab PO 20 mg BID [facility] Administration Enoxaparin Sodium 40 mg 11/06/20 10:00 Enoxaparin 40 Mg/0.4 Ml Inj SUB-Q QDAY [facility] Protocol Folic Acid 1 mg 11/05/20 10:00 11/05/20 12:54 Folic Acid 1 Mg Tab PO Not Given QDAY [facility] Hydromorphone HCl 0.5 mg 11/04/20 15:42 11/05/20 12:38 Hydromorphone 1 Mg/1 Ml Inj IV 0.5 mg Q8H PRN Administration Pain , Severe (7-10) Ibuprofen 600 mg 11/04/20 15:14 Ibuprofen 600 Mg Tab PO Q6H PRN Pain, Mild (1-3) Lisinopril 5 mg 11/05/20 10:00 11/05/20 12:55 Lisinopril 5 Mg Tab PO Not Given DAILY [facility] Multivitamins 1 each 11/05/20 10:00 11/05/20 12:56 Multivitamins ,Therapeutic Tab PO Not Given QDAY [facility] Ondansetron HCl 4 mg 11/04/20 15:14 Ondansetron 4 Mg/2 Ml Inj IV Q8H PRN Nausea And Vomiting Oxycodone/Acetaminophen 1 tab 11/04/20 15:42 11/05/20 09:03 Oxycodone /Acetaminophen 5-325mg Tab PO 1 tab Q24H PRN Administration Pain, Moderate (4-6) Pantoprazole Sodium 40 mg 11/05/20 10:00 Pantoprazole 40 Mg Tab PO DAILY [facility] Sodium Chloride 10 ml 11/04/20 22:00 11/05/20 12:55 Sodium Chloride 0.9% 10 Ml Flush Syringe IV 10 ml BID [facility] Administration Sodium Chloride 10 ml 08/07/21 15:13 Sodium Chloride 0.9% 10 Ml Flush Syringe IV PRN PRN LINE FLUSH Thiamine HCl 100 mg 11/05/20 10:00 11/05/20 12:56 Thiamine 100 Mg Tab PO Not Given QDAY [facility]
--- NOTE | 2020-11-05 16:08 | Gastroenterology Consultation ---
History of Present Illness - Reason for Consult Consult date: 11/05/20 pancreatitis Requesting physician: CODY CURRY - History of Present Illness This is a 50 yo male with pmh of chronic alcohol related pancreatitis and DM admitted for abdominal pain and acute on chronic pancreatitis. He came to the ED on 11/03/2020 for same symptoms and noted to have elevated lipase and LFTs. Left AMA. Today, reports having intermittent epigastric pain radiating to his back wo rse with food. One episode of vomiting earlier this week. No diarrhea, fever, blood in the stools. Last alcohol intake with beers on 11/02/2020. Multiple admissions in the past for alcohol related pancreatitis. CT showing mild asymmetric intrahepatic biliary ductal dilation, pancreas calcification, and mild PD dilation along with nonocclustive portal vein thrombosis. Hem/onc consulted and rec for lovenox. medication list reviewed. Past History Past Medical History: diabetes, hypertension, other (See HPI) Past Surgical History: Other (Splenectomy, left arm surgery) Social history: single, smoking, alcohol abuse Family history: diabetes, hypertension Medications and Allergies Allergies Allergy/AdvReac Type Severity Reaction Status Date / Time No Known Allergies Allergy Verified 11/04/20 07:56 Home Medications Medication Instructions Recorded Confirmed Last Taken Type Lisinopril [Zestril] 5 mg PO DAILY 05/29/20 11/05/20 Unknown History metFORMIN [Glucophage] 500 mg PO DAILY 05/29/20 11/05/20 Unknown History busPIRone [Buspar] 10 mg PO BID #60 tab 05/31/20 11/05/20 Unknown Rx lisinopriL [Zestril TAB] 10 mg PO QDAY 90 Days #90 tablet 05/31/20 11/05/20 Unknown Rx traMADoL [Ultram] 50 mg PO Q6HR PRN #28 tablet 05/31/20 11/05/20 Unknown Rx Dicyclomine [Bentyl] 20 mg PO BID #30 tablet 09/27/20 11/05/20 Unknown Rx Famotidine [Pepcid] 20 mg PO BID #30 tablet 09/27/20 11/05/20 Unknown Rx Pantoprazole Sodium [Protonix] 40 mg PO QDAY 30 Days #30 09/27/20 11/05/20 Unk nown Rx granpkt. Famotidine [Pepcid] 20 mg PO BID #30 tablet 10/26/20 11/05/20 Unknown Rx Ondansetron [Zofran Odt] 4 mg PO Q6HR PRN #20 tab.rapdis 10/26/20 11/05/20 Unknown Rx Active Meds: Active Medications Acetaminophen (Acetaminophen 325 Mg Tab) 650 mg PO Q12H PRN PRN Reason: Pain MILD(1-3)/Fever >100.5/WOODS Albuterol (Albuterol 2.5 Mg/3 Ml Nebu) 2.5 mg IH Q4HRT PRN PRN Reason: Shortness Of Breath Buspirone HCl (Buspirone 10 Mg Tab) 10 mg PO BID COUNT INCLUDES THE [facility] Last Admin: 11/05/20 12:04 Dose: 10 mg Documented by: Dicyclomine HCl (Dicyclomine 20 Mg Tab) 20 mg PO BID COUNT INCLUDES THE [facility] Last Admin: 11/05/20 12:04 Dose: 20 mg Documented by: Enoxaparin Sodium (Enoxaparin 40 Mg/0.4 Ml Inj) 40 mg SUB-Q QDAY COUNT INCLUDES THE [facility]; Protocol Folic Acid (Folic Acid 1 Mg Tab) 1 mg PO QDAY COUNT INCLUDES THE [facility] Last Admin: 11/05/20 12:54 Dose: Not Given Documented by: Hydromorphone HCl (Hydromorphone 1 Mg/1 Ml Inj) 0.5 mg IV Q8H PRN PRN Reason: Pain , Severe (7-10) Last Admin: 11/05/20 12:38 Dose: 0.5 mg Documented by: Ibuprofen (Ibuprofen 600 Mg Tab) 600 mg PO Q6H PRN PRN Reason: Pain, Mild (1-3) Lisinopril (Lisinopril 5 Mg Tab) 5 mg PO DAILY COUNT INCLUDES THE [facility] Last Admin: 11/05/20 12:55 Dose: Not Given Documented by: Multivitamins (Multivitamins ,Therapeutic Tab) 1 each PO QDAY COUNT INCLUDES THE [facility] Last Admin: 11/05/20 12:56 Dose: Not Given Documented by: Ondansetron HCl (Ondansetron 4 Mg/2 Ml Inj) 4 mg IV Q8H PRN PRN Reason: Nausea And Vomiting Oxycodone/Acetaminophen (Oxycodone /Acetaminophen 5-325mg Tab) 1 tab PO Q24H PRN PRN Reason: Pain, Moderate (4-6) Last Admin: 11/05/20 09:03 Dose: 1 tab Documented by: Pantoprazole Sodium (Pantoprazole 40 Mg Tab) 40 mg PO DAILY COUNT INCLUDES THE [facility] Sodium Chloride (Sodium Chloride 0.9% 10 Ml Flush Syringe) 10 ml IV BID COUNT INCLUDES THE [facility] Last Admin: 11/05/20 12:55 Dose: 10 ml Documented by: Sodium Chloride (Sodium Chloride 0.9% 10 Ml Flush Syringe) 10 ml IV PRN PRN PRN Reason: LINE FLUSH Thiamine HCl (Thiamine 100 Mg Tab) 100 mg PO QDAY COUNT INCLUDES THE [facility] Last Admin: 11/05/20 12:56 Dose: Not Given Documented by: Review of Systems - Review of Systems All systems: negative Constitutional: no fever Cardiovascular: no chest pain Gastrointestinal: abdominal pain, nausea, vomiting, no diarrhea, no constipation, no change in bowel habits, no hematemesis, no hematochezia Psychiatric: anxiety Hematologic/Lymphatic: no easy bruising Exam - Constitutional Vital Signs: Temp Pulse Resp BP Pulse Ox 97.5 F L 55 L 20 116/78 99 11/04/20 22:00 11/05/20 08:54 11/04/20 22:00 11/05/20 08:54 11/05/20 10:00 General appearance: no acute distress - EENT ENT: hearing intact - Respiratory Respiratory effort: normal - Cardiovascular Rhythm: regular Heart Sounds: Present: S1 & S2 - Gastrointestinal General gastrointestinal: Present: soft, tender, non-distended - Neurologic Neurological: alert and oriented x3 - Psychiatric Psychiatric: appropriate mood/affect - Labs CBC & Chem 7: 11/05/20 10:29 11/05/20 10:29 Lab Results: Laboratory Results - last 24 hr 11/05/20 11/05/20 10:29 10:29 WBC 3.7 L RBC 4.36 Hgb 13.3 Hct 38.2 MCV 88 MCH 31 MCHC 35 H RDW 13.8 Plt Count 256 Lymph % (Auto) 41.3 H [place] % (Auto) 8.1 H Eos % (Auto) 2.6 Baso % (Auto) 0.9 Lymph # (Auto) 1.5 [place] # (Auto) 0.3 Eos # (Auto) 0.1 Baso # (Auto) 0.0 Seg Neutrophils % 47.1 Seg Neutrophils # 1.7 L Sodium 134 L Potassium 4.5 Chloride 98.4 Carbon Dioxide 26 Anion Gap 14 BUN 7 L Creatinine 0.6 L Estimated GFR > 60 BUN/Creatinine Ratio 12 Glucose 219 H Calcium 9.8 Total Bilirubin 2.20 H AST 267 H ALT 309 H Alkaline Phosphatase 544 H Total Protein 6.8 Albumin 3.8 L Albumin/Globulin Ratio 1.3 - Imaging CT Scan: report reviewed Assessment and Plan # Acute on chronic pancreatitis - alcohol related - continued alcohol use with last intake on 11/02/2020 - Lipase trending down from last ED visit on 11/03/2020 - elevated LFTs trending down. - CT showing mild asymmetric intrahepatic biliary ductal dilation, pancreas calcification, and mild PD dilation along with nonocclustive portal vein thrombosis. # Elevated LFTs - suspect related to alcohol - trending down. - normal INR - acute viral hepatitis panel negative. Rec - supportive care - IV fluids - pain control - currently on lovenox. follow hem/onc recs for supervisor intermediates anticoagulation plans - advised on alcohol cessation. - given LFTs trending down, do not feel need for MRCP. - no indication for antibiotics given no leukocytosis or necrosis on imaging. - monitor LFTs - Patient Problems (1) Abdominal pain Current Visit: Yes Status: Acute Qualifiers: Abdominal location: epigastric Qualified Code(s): R10.13 - Epigastric pain (2) Chronic pancreatitis Current Visit: Yes Status: Acute Qualifiers: Pancreatitis type: alcohol induced Qualified Code(s): K86.0 - Alcohol- induced chronic pancreatitis (3) Elevated LFTs Current Visit: Yes Status: Acute
[2020-11-05] MEDS: PANTOPRAZOLE 40 MG TAB PO SCH (17:10)
[2020-11-05] MEDS: LACTATED RINGERS 1,000 ML IV SCH (17:12)
[2020-11-06] MEDS: LACTATED RINGERS 1,000 ML IV SCH (00:32)
[2020-11-06] MEDS: HYDROmorphone 1 MG/1 ML INJ IV PRN ×2 (04:41→21:40)
[2020-11-06 06:30] LABS: Hemoglobin 12.3 gm/dl (11.8-15.2); Mean Corpuscular HGB Conc 34 % (32-34); Mean Corpuscular Volume 86 fl (84-94); Platelet Count 262 K/mm3 (140-440); Red Blood Count 4.17 M/mm3 (3.65-5.03); Red Cell Distribution Width 13.9 % (13.2-15.2)
[2020-11-06 08:04] LABS: Alanine Aminotransferase 278 units/L (7-56); Albumin 3.8 g/dL (3.9-5); Blood Urea Nitrogen 6 mg/dL (9-20); Calcium 9.3 mg/dL (8.4-10.2); Hemolysis Index 2
[2020-11-06 08:20] LABS: BUN/Creatinine Ratio 10
[2020-11-06] MEDS: FOLIC ACID 1 MG TAB PO SCH (10:50)
[2020-11-06] MEDS: THIAMINE 100 MG TAB PO SCH (10:50)
[2020-11-06] MEDS: MULTIVITAMINS ,THERAPEUTIC TAB PO SCH (10:50)
[2020-11-06] MEDS: PANTOPRAZOLE 40 MG TAB PO SCH (10:50)
[2020-11-06] MEDS: DICYCLOMINE 20 MG TAB PO SCH ×2 (10:51→21:35)
[2020-11-06] MEDS: LISINOPRIL 5 MG TAB PO SCH (10:53)
[2020-11-06] MEDS: oxyCODONE /ACETAMINOPHEN 5-325MG TAB PO PRN (11:05)
[2020-11-06] MEDS: ENOXAPARIN 40 MG/0.4 ML INJ SUB-Q SCH (11:06)
[2020-11-06] MEDS: busPIRone 10 MG TAB PO SCH ×2 (11:06→21:35)
--- NOTE | 2020-11-06 13:27 | Gastroenterology Progress Note ---
Assessment and Plan # Acute on chronic pancreatitis - alcohol related - continued alcohol use with last intake on 11/02/2020 - Lipase trending down from last ED visit on 11/03/2020 - elevated LFTs trending down. - CT showing mild asymmetric intrahepatic biliary ductal dilation, pancreas calcification, and mild PD dilation along with nonocclustive portal vein thrombosis. # Elevated LFTs - suspect related to alcohol - Tbili, AST, ALT trending down but persistent elevated of Alk phos. - normal INR - acute viral hepatitis panel negative. Rec - supportive care - IV fluids - pain control - currently on lovenox. follow hem/onc recs for snf anticoagulation plans - advised on alcohol cessation. - recommend MRCP given findings of bile duct dilation and persistent alk phos elevated. MRCP ordered. - no indication for antibiotics given no leukocytosis or necrosis on imaging. - monitor LFTs - if MRCP negative, patient may discharge tomorrow after MRCP and follow up in GI clinic. - Patient Problems (1) Abdominal pain Current Visit: Yes Status: Acute Qualifiers: Abdominal location: epigastric Qualified Code(s): R10.13 - Epigastric pain (2) Chronic pancreatitis Current Visit: Yes Status: Acute Qualifiers: Pancreatitis type: alcohol induced Qualified Code(s): K86.0 - Alcohol- induced chronic pancreatitis (3) Elevated LFTs Current Visit: Yes Status: Acute Subjective Date of service: 11/06/20 Interval history: Patient feels better with abdominal pain improved. tolerating diet without worsening abdominal pain or nausea/vomiting. Objective - Constitutional Vitals: Temp Pulse Resp BP Pulse Ox 97.5 F L 48 L 18 110/73 100 11/06/20 11:18 11/06/20 11:18 11/06/20 11:18 11/06/20 11:18 11/06/20 13:17 General appearance: no acute distress - EENT ENT: hearing intact - Respiratory Respiratory effort: normal - Cardiovascular Rhythm: regular Heart Sounds: Present: S1 & S2 - Gastrointestinal General gastrointestinal: Present: soft, non-tender, non-distended - Integumentary Integumentary: Present: clear, warm - Neurologic Neurological: alert and oriented x3 - Labs CBC & Chem 7: 11/06/20 05:50 11/06/20 05:50 Labs: Laboratory Results - last 24 hr 11/06/20 11/06/20 05:50 05:50 WBC 4.3 L RBC 4.17 Hgb 12.3 Hct 36.0 MCV 86 MCH 30 MCHC 34 RDW 13.9 Plt Count 262 Sodium 134 L Potassium 4.4 Chloride 99.1 Carbon Dioxide 26 Anion Gap 13 BUN 6 L Creatinine 0.6 L Estimated GFR > 60 BUN/Creatinine Ratio 10 Glucose 209 H Calcium 9.3 Total Bilirubin 1.30 H AST 218 H ALT 278 H Alkaline Phosphatase 556 H Total Protein 5.9 L Albumin 3.8 L Albumin/Globulin Ratio 1.5 Lipase 565 H - Imaging CT scan: report reviewed
--- NOTE | 2020-11-06 15:45 | Progress Note ---
Assessment and Plan Assessment and plan: -- Portal vein thrombosis Current Visit: Yes Status: Acute Evaluation noted and appreciated Hematology and GI evaluation noted and appreciated Recommendations reviewed GI recommend MRCP today --History of chronic pancreatitis Current Visit: Yes Status: Acute IV fluid resuscitation therapy, pain management advance diet as tolerated, supportive care, --Hypertension Current Visit: Yes Status: Acute Continue current antihypertensives As needed medications --Type II diabetes Current Visit: Yes Status: Acute Sliding-scale insulin therapy, Accu-Chek, consistent carbohydrate diet. --Transaminitis/alcoholic liver disease; Current Visit: Yes Status: Acute Closely monitor LFTs Counseled patient to quit alcohol intake GI consulted, supportive care --History of ETOH abuse Current Visit: Yes Status: Acute Thiamine, folic acid, multivitamin, supportive care, Strongly advised to quit alcohol intake , advised to seek alcohol rehabilitation And attend [facility] support group as outpatient --Alcohol withdrawal symptoms;/closely monitor Current Visit: Yes Status: Acute No withdrawal symptoms at this point Initiate CIWA protocol if needed --Nicotine dependence Current Visit: Yes Status: Acute Smoking cessation counseling, Nicotine patch as needed --DVT prophylaxis Current Visit: Yes Status: Acute Subcu Lovenox, SCDs We will closely monitor the patient and adjust management as needed Plan of care reviewed with the patient and his nurse Workforce Management Analyst recommendations noted and appreciated GI evaluation noted and appreciated Planning MRCP today/tomorrow N.p.o. status from midnight Will follow MRCP If patient is clinically stable MRCP negative May be discharged home tomorrow History Interval history: I have seen and examined the patient at the bedside this afternoon Patient's chart and medications reviewed Patient feels slightly better GI evaluation noted and appreciated Recommend MRCP Patient complains of mild abdominal pain Vital signs noted Hospitalist Physical - Constitutional Vitals: Temp Pulse Resp BP Pulse Ox 97.5 F L 48 L 18 110/73 100 11/06/20 11:18 11/06/20 11:18 11/06/20 11:18 11/06/20 11:18 11/06/20 13:17 General appearance: Present: mild distress, well-nourished - EENT Eyes: Present: PERRL, EOM intact - Neck Neck: Present: supple, normal ROM - Respiratory Respiratory effort: normal Respiratory: bilateral: diminished, negative: rales, rhonchi, wheezing - Cardiovascular Rhythm: regular Heart Sounds: Present: S1 & S2 - Extremities Extremities: no ischemia, No edema - Abdominal General gastrointestinal: soft, tender (Very minimal tenderness, no guarding no rigidity), normal bowel sounds - Integumentary Integumentary: Present: clear, warm - Psychiatric Psychiatric: appropriate mood/affect, cooperative - Neurologic Neurologic: moves all extremities Results - Labs CBC & Chem 7: 11/06/20 05:50 11/07/20 04:37 Labs: Laboratory Last Values WBC 4.3 K/mm3 (4.5-11.0) L 11/06/20 05:50 RBC 4.17 M/mm3 (3.65-5.03) 11/06/20 05:50 Hgb 12.3 gm/dl (11.8-15.2) 11/06/20 05:50 Hct 36.0 % (35.5-45.6) 11/06/20 05:50 MCV 86 fl (84-94) 11/06/20 05:50 MCH 30 pg (28-32) 11/06/20 05:50 MCHC 34 % (32-34) 11/06/20 05:50 RDW 13.9 % (13.2-15.2) 11/06/20 05:50 Plt Count 262 K/mm3 (140-440) 11/06/20 05:50 Lymph % (Auto) 41.3 % (13.4-35.0) H 11/05/20 10:29 [place] % (Auto) 8.1 % (0.0-7.3) H 11/05/20 10:29 Eos % (Auto) 2.6 % (0.0-4.3) 11/05/20 10:29 Baso % (Auto) 0.9 % (0.0-1.8) 11/05/20 10:29 Lymph # (Auto) 1.5 K/mm3 (1.2-5.4) 11/05/20 10:29 [place] # (Auto) 0.3 K/mm3 (0.0-0.8) 11/05/20 10:29 Eos # (Auto) 0.1 K/mm3 (0.0-0.4) 11/05/20 10:29 Baso # (Auto) 0.0 K/mm3 (0.0-0.1) 11/05/20 10:29 Seg Neutrophils % 47.1 % (40.0-70.0) 11/05/20 10:29 Seg Neutrophils # 1.7 K/mm3 (1.8-7.7) L 11/05/20 10:29 PT 12.8 Sec. (12.2-14.9) 11/04/20 13:58 INR 0.91 (0.87-1.13) 11/04/20 13:58 APTT 32.6 Sec. (24.2-36.6) 11/04/20 13:58 Sodium 134 mmol/L (137-145) L 11/06/20 05:50 Potassium 4.4 mmol/L (3.6-5.0) 11/06/20 05:50 Chloride 99.1 mmol/L (98-107) 11/06/20 05:50 Carbon Dioxide 26 mmol/L (22-30) 11/06/20 05:50 Anion Gap 13 mmol/L 11/06/20 05:50 BUN 6 mg/dL (9-20) L 11/06/20 05:50 Creatinine 0.6 mg/dL (0.8-1.3) L 11/06/20 05:50 Estimated GFR > 60 ml/min 11/06/20 05:50 BUN/Creatinine Ratio 10 % 11/06/20 05:50 Glucose 209 mg/dL (75-100) H 11/06/20 05:50 Calcium 9.3 mg/dL (8.4-10.2) 11/06/20 05:50 Total Bilirubin 1.30 mg/dL (0.1-1.2) H 11/06/20 05:50 AST 218 units/L (5-40) H 11/06/20 05:50 ALT 278 units/L (7-56) H 11/06/20 05:50 Alkaline Phosphatase 556 units/L (35-129) H 11/06/20 05:50 Total Protein 5.9 g/dL (6.3-8.2) L 11/06/20 05:50 Albumin 3.8 g/dL (3.9-5) L 11/06/20 05:50 Albumin/Globulin Ratio 1.5 % 11/06/20 05:50 Lipase 565 units/L (13-60) H 11/06/20 05:50 [place]/IV: Voiding Method Toilet Active Medications - Current Medications Current Medications: Generic Name Dose Route Start Last Admin Trade Name Freq PRN Reason Stop Dose Admin Acetaminophen 650 mg 11/04/20 15:42 Acetaminophen 325 Mg Tab PO Q12H PRN Pain MILD(1-3)/Fever >100.5/WOODS Albuterol 2.5 mg 11/04/20 15:06 Albuterol 2.5 Mg/3 Ml Nebu IH Q4HRT PRN Shortness Of Breath Buspirone HCl 10 mg 11/04/20 22:00 11/06/20 11:06 Buspirone 10 Mg Tab PO 10 mg BID CHERYL Administration Dicyclomine HCl 20 mg 11/04/20 22:00 11/06/20 10:51 Dicyclomine 20 Mg Tab PO 20 mg BID CHERYL Administration Enoxaparin Sodium 40 mg 11/06/20 10:00 11/06/20 11:06 Enoxaparin 40 Mg/0.4 Ml Inj SUB-Q 40 mg QDAY CHERYL Administration Protocol Folic Acid 1 mg 11/05/20 10:00 11/06/20 10:50 Folic Acid 1 Mg Tab PO 1 mg QDAY CHERYL Administration Hydromorphone HCl 0.5 mg 11/04/20 15:42 11/06/20 04:41 Hydromorphone 1 Mg/1 Ml Inj IV 0.5 mg Q8H PRN Administration Pain , Severe (7-10) Lactated Ringer's 1,000 mls @ 100 mls/hr 11/05/20 17:15 11/06/20 00:32 Lactated Ringers IV 11/07/20 03:14 100 mls/hr DIRECT CHERYL Administration Ibuprofen 600 mg 11/04/20 15:14 Ibuprofen 600 Mg Tab PO Q6H PRN Pain, Mild (1-3) Lisinopril 5 mg 11/05/20 10:00 11/06/20 10:53 Lisinopril 5 Mg Tab PO 5 mg DAILY CHERYL Administration Multivitamins 1 each 11/05/20 10:00 11/06/20 10:50 Multivitamins ,Therapeutic Tab PO 1 each QDAY CHERYL Administration Ondansetron HCl 4 mg 11/04/20 15:14 Ondansetron 4 Mg/2 Ml Inj IV Q8H PRN Nausea And Vomiting Oxycodone/Acetaminophen 1 tab 11/04/20 15:42 11/06/20 11:05 Oxycodone /Acetaminophen 5-325mg Tab PO 1 tab Q24H PRN Administration Pain, Moderate (4-6) Pantoprazole Sodium 40 mg 11/05/20 10:00 11/06/20 10:50 Pantoprazole 40 Mg Tab PO 40 mg DAILY CHERYL Administration Sodium Chloride 10 ml 11/04/20 22:00 11/06/20 11:23 Sodium Chloride 0.9% 10 Ml Flush Syringe IV 10 ml BID CHERYL Administration Sodium Chloride 10 ml 11/04/20 15:13 Sodium Chloride 0.9% 10 Ml Flush Syringe IV PRN PRN LINE FLUSH Thiamine HCl 100 mg 11/05/20 10:00 11/06/20 10:50 Thiamine 100 Mg Tab PO 100 mg QDAY CHERYL Administration
--- NOTE | 2020-11-06 16:17 | Magnetic Resonance Report ---
MR abdomen MRCP HISTORY: Dilated common bile duct and pancreatic duct TECHNIQUE: Multisequence, multiplanar MRI without contrast. Thin slab coronal and radial MRCP images. COMPARISON: CT abdomen pelvis 11/03/2020 FINDINGS: Many of the sequences are limited secondary to patient breathing motion artifact. Cholecystectomy aaron nges are again noted. The MRCP images demonstrate mild diffuse dilatation of the biliary tree and nowak creatic duct. No choledocholithiasis or high-grade stricture is detected on MRCP. The common bile sebastien t measures up to 9 mm. The pancreas is atrophic with calcifications consistent with chronic pancreatitis. The pancreatic sebastien t is moderately dilated and irregular. No obvious pancreatic mass or acute inflammation is identified on noncontrast MRI. The liver parenchyma is unremarkable. The spleen is small in size or surgically removed. Small splenu le in the left upper quadrant is noted. The kidneys, adrenal glands, vascular structures and visualiz ed bowel loops are unremarkable. No evidence for ascites, bulky adenopathy or fluid collection. IMPRESSION: There is moderate dilatation of the pancreaticobiliary tree but no evidence for choledocholithiasis o r obstructing lesion. This is likely secondary to cholecystectomy. Chronic pancreatitis. Splenectomy. Signer Name: Bib Hayse Jr, MD Signed: 11/06/2020 4:13 PM Workstation Name: [id number]
[2020-11-07 08:01] VITALS: BP 138/84
[2020-11-07 09:40] LABS: Alanine Aminotransferase 264 units/L (7-56); Albumin 3.7 g/dL (3.9-5); BUN/Creatinine Ratio 13; Blood Urea Nitrogen 8 mg/dL (9-20); Calcium 9.7 mg/dL (8.4-10.2); Hemolysis Index 12
[2020-11-07] MEDS: DICYCLOMINE 20 MG TAB PO SCH (09:40)
[2020-11-07] MEDS: busPIRone 10 MG TAB PO SCH (09:40)
[2020-11-07] MEDS: FOLIC ACID 1 MG TAB PO SCH (09:40)
[2020-11-07] MEDS: PANTOPRAZOLE 40 MG TAB PO SCH (09:40)
[2020-11-07] MEDS: LISINOPRIL 5 MG TAB PO SCH (09:40)
[2020-11-07] MEDS: THIAMINE 100 MG TAB PO SCH (09:40)
[2020-11-07] MEDS: MULTIVITAMINS ,THERAPEUTIC TAB PO SCH (09:40)
[2020-11-07] MEDS: ENOXAPARIN 40 MG/0.4 ML INJ SUB-Q SCH (09:42)
[2020-11-07] MEDS: oxyCODONE /ACETAMINOPHEN 5-325MG TAB PO PRN (10:47)
--- NOTE | 2020-11-07 12:43 | Gastroenterology Progress Note ---
Assessment and Plan # Acute on chronic pancreatitis - alcohol related - continued alcohol use with last intake on 11/02/2020 - Lipase trending down from last ED visit on 11/03/2020 - elevated LFTs trending down. - CT showing mild asymmetric intrahepatic biliary ductal dilation, pancreas calcification, and mild PD dilation along with nonocclustive portal vein thrombosis. # Elevated LFTs - suspect related to alcohol - Tbili, AST, ALT trending down but persistent elevated of Alk phos. - normal INR - acute viral hepatitis panel negative. - MRCP IMPRESSION: There is moderate dilatation of the pancreaticobiliary tree but no evidence for choledocholithiasis or obstructing lesion. This is likely secondary to cholecystectomy. Chronic pancreatitis. Splenectomy. Rec - supportive care - pain control - currently on lovenox. follow hem/onc recs for supervisor intermediates anticoagulation plans - advised on alcohol cessation. - ok for discharge per GI standpoint and follow up in GI clinic. - Patient Problems (1) Abdominal pain Current Visit: Yes Status: Acute Qualifiers: Abdominal location: epigastric Qualified Code(s): R10.13 - Epigastric pain (2) Chronic pancreatitis Current Visit: Yes Status: Acute Qualifiers: Pancreatitis type: alcohol induced Qualified Code(s): K86.0 - Alcohol- induced chronic pancreatitis (3) Elevated LFTs Current Visit: Yes Status: Acute Subjective Date of service: 11/07/20 Interval history: Patient feeling fine. No abdominal pain. Tolerating diet. Objective - Constitutional Vitals: Temp Pulse Resp BP Pulse Ox 98.4 F 52 L 18 138/84 98 11/07/20 07:53 11/07/20 07:53 11/07/20 07:53 11/07/20 07:53 11/07/20 11:59 General appearance: no acute distress - EENT Eyes: EOM intact ENT: hearing intact - Respiratory Respiratory effort: normal - Cardiovascular Rhythm: regular Heart Sounds: Present: S1 & S2 - Gastrointestinal General gastrointestinal: Present: soft, non-tender, non-distended - Integumentary Integumentary: Present: clear, warm - Neurologic Neurological: alert and oriented x3 - Labs CBC & Chem 7: 11/06/20 05:50 11/07/20 04:37 Labs: Laboratory Results - last 24 hr 11/07/20 11/07/20 04:37 04:37 Sodium 140 Potassium 4.1 Chloride 101.9 Carbon Dioxide 26 Anion Gap 16 BUN 8 L Creatinine 0.6 L Estimated GFR > 60 BUN/Creatinine Ratio 13 Glucose 136 H Calcium 9.7 Total Bilirubin 1.10 AST 167 H ALT 264 H Alkaline Phosphatase 556 H Total Protein 6.7 Albumin 3.7 L Albumin/Globulin Ratio 1.2 Lipase 391 H - Imaging MRI: report reviewed
--- NOTE | 2020-11-07 13:48 | Discharge Summary ---
Providers - Providers Date of Admission: 11/04/20 15:37 Date of discharge: 11/07/20 Attending physician: CODY CURRY 11/04/20 15:02 Consult to Physician [CONS] Stat Comment: Consulting Provider: RAJAT LORENZ Physician Instructions: Reason For Exam: portal vein thrombus complicated by liver dysfunct 11/05/20 13:54 Consult to Physician [CONS] Routine Comment: Consulting Provider: ELAINA SANDOVAL Physician Instructions: Reason For Exam: Portal vein thrombosis/h/o chronic pancreatitis Primary care physician: DISCOTHEQUE DANCER Hospitalization Reason for admission: Abdominal pain/portal vein thrombosis Condition: Stable Pertinent studies: Abdominal ultrasound MRCP Hospital course: 50-year-old male patient with significant past medical history of chronic pancreatitis chronic alcohol use nicotine dependence hypertension diabetes mellitus was admitted through emergency room with abdominal pain patient underwent abdominal ultrasound which revealed dilated pancreatic duct and common bile duct Pancreatic calcifications compatible with chronic pancreatitis and nonocclusive portal vein thrombus Patient was symptomatically managed and evaluated by interventional radiologist Dr. Allred, recommended hematology consult And to start low-dose Lovenox 40 mg subcu daily And felt that anticoagulation may complicate hemorrhagic conversion of chronic pancreatitis. Patient was evaluated by telemetry molecular biology scientist Dr. LORENZ, who recommended short- term anticoagulation with low-dose Eliquis at 2.5 mg twice daily for 1 month Also recommended GI evaluation patient was evaluated by GI patient was evaluated by GI and recommended MRCP MRCP; moderate dilatation of the pancreatico biliary tree no evidence for Pam no cholelithiasis or obstructing lesion Likely secondary to cholecystectomy, chronic pancreatitis, splenectomy next GI recommended supportive care advised to follow hematology recommendations of anticoagulation with 2.5 mg of Eliquis for 1 month, and follow-up with them as outpatient for further evaluation and management. Patient was started on Eliquis 2.5 mg twice a day, patient symptoms slowly but gradually improved Today he is comfortable, no new complaints, vital signs reviewed, physical examination prior to discharge, no new changes Cleared by hematology, GI for discharge and follow-up with them per schedule Patient is stable at discharge Discharge diagnosis: -- Portal vein thrombosis Patient was evaluated by hematology and GI Status post MRCP findings noted Discharged on 2.5 mg of Eliquis twice a day for 1 month per hematology --History of chronic pancreatitis Supportive care --hypertension; Continue current antihypertensives --Type II diabetes Sliding-scale insulin therapy, Accu-Chek, ADA diet --Transaminitis/alcoholic liver disease; Closely monitor LFTs, Follow GI per schedule --History of ETOH abuse Thiamine, folic acid, multivitamin, supportive care, Advised to quit alcohol intake, join alcohol rehabilitation --Alcohol withdrawal symptoms; No withdrawal symptoms at this point, advised to quit alcohol intake --Nicotine dependence Smoking cessation counseling, nicotine patch as needed Cleared by consultants for discharge and follow-up per schedule Patient is stable at discharge Disposition: 01 HOME / SELF CARE / HOMELESS Final Discharge Diagnosis (Prints w/discharge instructions): Portal vein thrombosis. History of chronic pancreatitis. Hypertension. Type 2 diabetes mellitus. Chronic alcohol use. Nicotine dependence. Alcohol withdrawal symptoms Time spent for discharge: 35 min Core Measure Documentation - Palliative Care Palliative Care/ Comfort Measures: Not Applicable - Core Measures Any of the following diagnoses?: none Exam - Constitutional Vitals: Temp Pulse Resp BP Pulse Ox 98.4 F 52 L 18 138/84 98 11/07/20 07:53 11/07/20 07:53 11/07/20 07:53 11/07/20 07:53 11/07/20 11:59 General appearance: Present: no acute distress, well-nourished - EENT Eyes: Present: PERRL, EOM intact - Neck Neck: Present: supple, normal ROM - Respiratory Respiratory effort: normal Respiratory: bilateral: diminished, negative: rales, rhonchi, wheezing - Cardiovascular Rhythm: regular Heart Sounds: Present: S1 & S2 - Extremities Extremities: no ischemia, No edema - Abdominal General gastrointestinal: Present: soft, non-tender, non-distended, normal bowel sounds - Integumentary Integumentary: Present: clear, warm - Musculoskeletal Musculoskeletal: strength equal bilaterally - Psychiatric Psychiatric: appropriate mood/affect, cooperative - Neurologic Neurologic: moves all extremities Plan Activity: no restrictions Diet: regular Additional Instructions: If you have worsening symptoms contact MD or go to the nearest emergency room. Advised to follow GI and molecular biology scientist per schedule Follow up with: NELLI RG MD [Primary Care Provider] - 3-5 Days RAJAT LORENZ MD [Staff Physician] - 14 Days MINELAINA MD [Staff Physician] - 7 Days Forms: Work/School Release Form Prescriptions: Dicyclomine [Bentyl] 20 mg PO BID PRN #14 tablet PRN Reason: Pain , Severe (7-10) Apixaban [Eliquis] 2.5 mg PO Q12H #60 tablet Famotidine [Pepcid] 20 mg PO BID #30 tablet oxyCODONE /ACETAMINOPHEN [Percocet 5/325 mg] 1 tab PO BID PRN #8 tablet PRN Reason: Pain, Moderate (4-6) Ondansetron [Zofran ODT TAB] 4 mg PO Q6HR PRN #20 tab.rapdis PRN Reason: Nausea And Vomiting
[2020-11-29 08:16] LABS: Hemoglobin A2 Prime SEE SCANNED RESULT; Hemoglobin Barts SEE SCANNED RESULT; Hemoglobin E SEE SCANNED RESULT; Hemoglobin G SEE SCANNED RESULT; Hemoglobin Lepore SEE SCANNED RESULT; Hemoglobin O-Arab SEE SCANNED RESULT
[2020-11-29 08:17] LABS: IEF Confirm SEE SCANNED RESULT; Interpretation SEE SCANNED RESULT; Sickle Solubility Test SEE SCANNED RESULT
== END 2020-11-07 16:05 | disposition home or self-care (01) | DRG 441 ==
LOC: ED 07:43 → 3A 15:37 → 3B-SURG 16:25
PROVIDERS: ADMIT Internal Medicine; ATTEND Internal Medicine
DX: I81 Portal vein thrombosis (principal); K85.20 Alcohol induced acute pancreatitis without necrosis or infection; F17.213 Nicotine dependence, cigarettes, with withdrawal; K83.8 Other specified diseases of biliary tract; K86.89 Other specified diseases of pancreas; F10.10 Alcohol abuse, uncomplicated; K70.9 Alcoholic liver disease, unspecified; I10 Essential (primary) hypertension; Z90.49 Acquired absence of other specified parts of digestive tract; Z90.81 Acquired absence of spleen; Z83.3 Family history of diabetes mellitus; Z82.49 Family history of ischemic heart disease and other diseases of the circulatory system; Z79.84 Long term (current) use of oral hypoglycemic drugs; Z79.899 Other long term (current) drug therapy
CPT/HCPCS: 36415; 74181; 76705; 80053; 83690; 85025; 85027; 85610; 85730; G0378; J1170; J1650; J2270; J2405; J7030; J7120

== ENCOUNTER 2021-05-03 13:47 | Emergency (ER) | payer SELFPAY ==
[2021-05-03] MEDS ORDERED: SODIUM CHLORIDE 0.9% 1000 ML 1,000 ML IV ONE (14:24)
[2021-05-03] MEDS ORDERED: INSULIN REGULAR, HUMAN 100 UNITS/1 ML IV ONE (14:25)
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
[2021-05-03 15:10] LABS: Basophils # (Auto) 0.1 K/mm3 (0.0-0.1); Basophils % (Auto) 2.9 % (0.0-1.8); Eosinophils % (Auto) 0.8 % (0.0-4.3); Hematocrit 46.1 % (35.5-45.6); Lymphocytes # (Auto) 2.7 K/mm3 (1.2-5.4); Lymphocytes % (Auto) 52.7 % (13.4-35.0); Mean Corpuscular HGB Conc 33 % (32-34); Mean Corpuscular Volume 87 fl (84-94); Monocytes # (Auto) 0.4 K/mm3 (0.0-0.8); Platelet Count 316 K/mm3 (140-440); Red Blood Count 5.33 M/mm3 (3.65-5.03); Red Cell Distribution Width 13.7 % (13.2-15.2)
[2021-05-03 15:35] LABS: Alanine Aminotransferase 11 units/L (7-56); Albumin 4.5 g/dL (3.9-5); BUN/Creatinine Ratio 15; Blood Urea Nitrogen 12 mg/dL (9-20); Calcium 10.4 mg/dL (8.4-10.2); Hemolysis Index 13
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
--- NOTE | 2021-05-03 16:33 | Cat Scan Report ---
CT ABDOMEN AND PELVIS WITH IV CONTRAST INDICATION: ABD PAIN. COMPARISON: CT 11/03/2020 TECHNIQUE: All CT scans at this facility use dose modulation, automated exposure control, iterative reconstructi on or weight based dosing, when appropriate, to reduce radiation dose to as low as reasonably achieva ble. FINDINGS: Lung Bases: No significant abnormality. Skeletal System: No acute abnormality. ABDOMEN: Liver: No significant abnormality. Gallbladder: Removed. Bile Ducts: There is mild biliary dilatation. Left-sided biliary dilatation has improved since the pr ior. Adrenals: No significant abnormality. Stable left adrenal adenoma. Right Kidney: No significant abnormality. Left Kidney: No significant abnormality. Pancreas: Coarse calcifications are again noted in the pancreas primarily in the head/uncinate. There appears to been resection of the pancreatic tail. Pancreatic duct dilatation and parenchymal atrophy are noted. Spleen: Prior splenectomy. Small splenules are again seen in the left upper quadrant. Upper GI tract: No significant abnormality. Lymph Nodes: No significant adenopathy. Aorta: No significant abnormality. Additional Findings: There is attenuation of the portal vein is crosses The pancreatic head. On the prior exam, this appeared occluded. PELVIS: Colon: No acute abnormality. Diverticulosis is noted. Urinary Bladder and Distal Ureters: No significant abnormality. Appendix: No significant abnormality. Lymph Nodes: No significant adenopathy. Additional Findings: None. IMPRESSION: 1. No acute process in the abdomen or pelvis. 2. Chronic calcific pancreatitis is again noted. There is attenuation of the extrahepatic portal vei n but no thrombosis is seen. Additional incidental findings as above are similar to the prior. Signer Name: Jose Samuel MD Signed: 05/03/2021 4:29 PM Workstation Name: [id number]
[2021-05-03 16:45] VITALS: BP 124/89
== END 2021-05-03 16:45 | disposition home or self-care (01) ==
LOC: ED 13:47
DX: E11.65 Type 2 diabetes mellitus with hyperglycemia (principal); E87.1 Hypo-osmolality and hyponatremia; R10.9 Unspecified abdominal pain; K86.1 Other chronic pancreatitis; F10.20 Alcohol dependence, uncomplicated; Z90.49 Acquired absence of other specified parts of digestive tract
CPT/HCPCS: 36415; 71046; 74177; 80053; 82010; 82962; 83690; 85025; 96361; 96374; 99284; J7030; Q9967; Q0162; J1815

== ENCOUNTER 2021-07-19 23:13 | Emergency (ER) | payer SELFPAY ==
[2021-07-20] MEDS ORDERED: KETOROLAC 30 MG/1 ML INJ IM ONE (03:38)
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
[2021-07-20 04:34] LABS: Basophils # (Auto) 0.1 K/mm3 (0.0-0.1); Basophils % (Auto) 0.9 % (0.0-1.8); Hematocrit 42.9 % (35.5-45.6); Hemoglobin 14.3 gm/dl (11.8-15.2); Lymphocytes # (Auto) 2.1 K/mm3 (1.2-5.4); Lymphocytes % (Auto) 34.8 % (13.4-35.0); Mean Corpuscular HGB Conc 33 % (32-34); Mean Corpuscular Volume 88 fl (84-94); Monocytes # (Auto) 0.5 K/mm3 (0.0-0.8); Monocytes % (Auto) 7.5 % (0.0-7.3); Platelet Count 264 K/mm3 (140-440); Red Blood Count 4.89 M/mm3 (3.65-5.03); Red Cell Distribution Width 14.5 % (13.2-15.2)
[2021-07-20 04:35] LABS: Bilirubin,Urine NEG (Negative); Blood,Urine MOD (Negative); Color,Urine Yellow (Yellow); Mucus,Urine FEW /HPF; Protein,Urine <15 mg/dL mg/dL (Negative); Urobilinogen,Urine < 2.0 mg/dL (<2.0)
[2021-07-20 04:51] LABS: Alanine Aminotransferase 14 units/L (7-56); Albumin 4.4 g/dL (3.9-5); Blood Urea Nitrogen 8 mg/dL (9-20); Calcium 10.1 mg/dL (8.4-10.2); Hemolysis Index 33
[2021-07-20 05:00] LABS: BUN/Creatinine Ratio 11
[2021-07-20] MEDS ORDERED: SODIUM CHLORIDE 0.9% 1000 ML 1,000 ML IV ONE (05:32)
[2021-07-20] MEDS ORDERED: ONDANSETRON 4 MG/2 ML INJ IV ONE (05:33)
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
[2021-07-20 06:57] VITALS: BP 167/101
== END 2021-07-20 06:57 | disposition home or self-care (01) ==
LOC: ED 23:13
DX: R10.11 Right upper quadrant pain (principal); I10 Essential (primary) hypertension; Z72.89 Other problems related to lifestyle; Z79.899 Other long term (current) drug therapy
CPT/HCPCS: 36415; 74176; 80053; 81001; 85025; 96361; 96372; 96374; 99284; J1885; J2405; J7030

== ENCOUNTER 2021-09-08 12:11 | Emergency (ER) | payer SELFPAY ==
[2021-09-08 12:44] VITALS: BP 98/70
[2021-09-08 15:30] LABS: Alanine Aminotransferase 72 units/L (7-56); Albumin 4.2 g/dL (3.9-5); BUN/Creatinine Ratio 17; Blood Urea Nitrogen 20 mg/dL (9-20); Calcium 9.8 mg/dL (8.4-10.2); Hemolysis Index 9
== END 2021-09-08 19:34 | disposition left against medical advice (07) ==
LOC: ED 12:11
DX: R73.9 Hyperglycemia, unspecified (principal); Z53.21 Procedure and treatment not carried out due to patient leaving prior to being seen by health care provider
CPT/HCPCS: 36415; 80053; 82962

== ENCOUNTER 2021-09-08 22:27 | Emergency (ER) | payer SELFPAY ==
[2021-09-09 05:14] LABS: Alanine Aminotransferase 62 units/L (7-56); Albumin 4.3 g/dL (3.9-5); BUN/Creatinine Ratio 20; Blood Urea Nitrogen 18 mg/dL (9-20); Calcium 10.1 mg/dL (8.4-10.2); Hemolysis Index 10
[2021-09-09] MEDS ORDERED: SODIUM CHLORIDE 0.9% 1000 ML 1,000 ML IV ONE ×2 (10:57)
[2021-09-09] MEDS ORDERED: INSULIN REGULAR, HUMAN 100 UNITS/1 ML IV ONE ×3 (11:04→11:11)
[2021-09-09 11:31] LABS: Hematocrit 41.8 % (35.5-45.6); Mean Corpuscular HGB Conc 34 % (32-34); Mean Corpuscular Volume 88 fl (84-94); Platelet Count 292 K/mm3 (140-440); Red Blood Count 4.76 M/mm3 (3.65-5.03); Red Cell Distribution Width 13.2 % (13.2-15.2)
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
[2021-09-09 11:49] LABS: BUN/Creatinine Ratio TNR; Blood Urea Nitrogen TNR mg/dL (9-20)
[2021-09-09 11:50] LABS: Calcium TNR mg/dL (8.4-10.2); Hemolysis Index 611
[2021-09-09 13:06] LABS: Total Cells Counted 100
[2021-09-09 13:07] LABS: Large Platelets Few; Platelet Estimate Consistent w Auto
[2021-09-09] MEDS ORDERED: metFORMIN 500 MG TAB PO ONE (13:46)
[2021-09-09 14:50] VITALS: BP 120/84
== END 2021-09-09 14:47 | disposition home or self-care (01) ==
LOC: ED 22:27
DX: E11.65 Type 2 diabetes mellitus with hyperglycemia (principal); I10 Essential (primary) hypertension; Z79.899 Other long term (current) drug therapy
CPT/HCPCS: 36415; 80048; 80053; 82805; 82962; 85007; 85025; 96361; 96374; 99284; J7030; Q9967; J1815

== ENCOUNTER 2021-11-22 19:51 | Inpatient (IN) | payer SELFPAY ==
[2021-11-22 20:35] LABS: Basophils # (Auto) 0.1 K/mm3 (0.0-0.1); Basophils % (Auto) 0.8 % (0.0-1.8); Eosinophils % (Auto) 0.1 % (0.0-4.3); Hemoglobin 12.6 gm/dl (11.8-15.2); Lymphocytes # (Auto) 3.2 K/mm3 (1.2-5.4); Lymphocytes % (Auto) 31.3 % (13.4-35.0); Mean Corpuscular HGB Conc 34 % (32-34); Mean Corpuscular Volume 85 fl (84-94); Monocytes # (Auto) 0.5 K/mm3 (0.0-0.8); Monocytes % (Auto) 5.1 % (0.0-7.3); Platelet Count 327 K/mm3 (140-440); Red Blood Count 4.34 M/mm3 (3.65-5.03); Red Cell Distribution Width 13.7 % (13.2-15.2)
[2021-11-22 20:51] LABS: Alanine Aminotransferase 19 units/L (7-56); Albumin 4.5 g/dL (3.9-5); BUN/Creatinine Ratio 19; Blood Urea Nitrogen 15 mg/dL (9-20); Calcium 9.7 mg/dL (8.4-10.2); Hemolysis Index 3
[2021-11-23] MEDS ORDERED: SODIUM CHLORIDE 0.9% 1000 ML 1,000 ML IV ONE ×2 (03:36→03:37)
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
[2021-11-23] MEDS ORDERED: MORPHINE 4 MG/1 ML INJ IV ONE (03:54)
--- NOTE | 2021-11-23 05:15 | Cat Scan Report ---
CT ABDOMEN AND PELVIS WITH CONTRAST INDICATION / CLINICAL INFORMATION: abdominal pain; recent stents CBD, pancreas. TECHNIQUE: Axial CT images were obtained through the abdomen and pelvis after IV contrast. All CT sc ans at this location are performed using CT dose reduction for ALARA by means of automated exposure c ontrol. COMPARISON: CT abdomen and pelvis 07/20/2021 FINDINGS: LOWER CHEST: Dependent atelectasis right lung base. LIVER: No focal hepatic mass. Portal vein is patent. GALLBLADDER / BILE DUCTS: Gallbladder absent. Intrahepatic and extrahepatic Biliary ducts are enlarged. Pneumobilia present left hepatic lobe. Common biliary stent extends to th e second portion of duodenum as it satisfactory position. SPLEEN: Splenule stable. PANCREAS: Diffuse calcification and ductal dilatation compatible prior pancreatitis/chronic pancreati tis. ADRENALS: No significant abnormality. KIDNEYS/URETERS: Right renal cysts are stable. Small left cyst unchanged. STOMACH / DUODENUM / SMALL BOWEL: Thickened appearing gastric folds nonspecific could reflect evidenc e of gastritis. Small bowel demonstrates no obstruction. Mesentery unremarkable. COLON: No acute findings. APPENDIX: No significant abnormality. PERITONEUM: No free air or free fluid are present within the abdomen or pelvis. LYMPH NODES: No significant adenopathy. AORTA / ARTERIES: No significant abnormality. IVC / VEINS: No significant abnormality. URINARY BLADDER: Moderately distended urinary bladder. REPRODUCTIVE ORGANS: No significant abnormality. SKELETAL SYSTEM: No significant abnormality. ADDITIONAL ABDOMINAL/PELVIC FINDINGS: None. IMPRESSION: 1. Findings compatible with chronic pancreatitis. Satisfactory positioning of biliary stent. 2. Pneumobilia likely related stent. 3. Other nonacute findings as detailed. Signer Name: Rafi Richards II, MD Signed: 11/23/2021 5:11 AM Workstation Name: [id number]
[2021-11-23 05:31] LABS: Color,Urine Colorless (Yellow)
[2021-11-23 05:34] LABS: Mucus,Urine FEW /HPF; WBC,Urine < 1.0 /HPF (0.0-6.0)
[2021-11-23] MEDS ORDERED: INSULIN REGULAR, HUMAN 100 UNITS/1 ML SUB-Q ONE (05:35)
[2021-11-23] MEDS ORDERED: ACETAMINOPHEN 325 MG TAB PO PRN ×2 (05:41→06:11)
[2021-11-23] MEDS ORDERED: ONDANSETRON 4 MG/2 ML INJ IV PRN ×2 (05:41→06:11)
[2021-11-23] MEDS ORDERED: MORPHINE 4 MG/1 ML INJ IV PRN (05:43)
[2021-11-23] MEDS ORDERED: SODIUM CHLORIDE 0.9% 1000 ML 1,000 ML IV SCH (05:45)
[2021-11-23] MEDS ORDERED: DEXTROSE 50% IN WATER (25GM) 50 ML SYRINGE IV PRN (06:14)
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
[2021-11-23] MEDS ORDERED: THIAMINE 100 MG, FOLIC ACID 1 MG, MULTIPLE VITAMIN INJ, ADULT 10 ML in SODIUM CHLORIDE ... IV ONE (06:20)
[2021-11-23] MEDS ORDERED: SODIUM CHLORIDE 0.45% 1000 ML 1,000 ML IV SCH (07:00)
[2021-11-23] MEDS: IPRATROPIUM/ALBUTEROL SULFATE 3 ML AMPUL.NEB IH SCH ×3 (07:59→20:32)
--- NOTE | 2021-11-23 08:09 | Progress Note ---
Assessment and Plan Assessment and plan: -- chronic pancreatitis IV fluids, pain medications, supportive care -- Acute abdominal pain Pain medications, antiemetics, IV fluids CT abdomen and pelvis, findings compatible with chronic pancreatitis satisfactory portion of biliary stent Open umbilical likely related to stent other nonacute findings as above --Type II diabetes melitis/uncontrolled Accu-Chek every 6 hours with Humalog moderate dose coverage. Diabetic education. Continue the home medication Possible home health nurse at discharge for disease monitoring --ETOH abuse We counseled regarding quit drinking. IV fluids Thiamine folic acid, monitor for withdrawal symptoms Counseling done advised to quit alcohol intake -- History of cholecystectomy Patient is status post stent placement. Supportive care -- DVT prophylaxis SCD for DVT prophylaxis. Pepcid 20 mg IV every 12 hours for GI prophylaxis. Patient is a full code --Advance care planning +30 minutes I discussed with the patient his condition tests and reports I discussed with the patient his diagnosis, I discussed his prognosis I also discussed the treatment plan as well as a discharge plan Answered all his questions verbalized understanding --Prolonged care inpatient 35 minutes Closely monitor the patient and adjust management as needed Plan of care reviewed with the patient as well as his nurse History Interval history: I have seen and examined the patient at the bedside Awaiting in ER bed assignment Patient was admitted with uncontrolled blood sugars and abdominal pain Feels slightly better Still blood sugars are on the higher range Probably secondary to noncompliance vital signs Hospitalist Physical - Constitutional Vitals: Temp Pulse Resp BP Pulse Ox 98.4 F 55 L 17 122/83 98 11/23/21 06:17 11/23/21 06:17 11/23/21 06:17 11/23/21 06:17 11/23/21 06:17 General appearance: Present: no acute distress, well-nourished - EENT Eyes: Present: PERRL, EOM intact - Neck Neck: Present: supple, normal ROM - Respiratory Respiratory effort: normal Respiratory: bilateral: diminished, negative: rales, rhonchi, wheezing - Cardiovascular Rhythm: regular Heart Sounds: Present: S1 & S2 - Extremities Extremities: no ischemia, No edema - Abdominal General gastrointestinal: soft, non-tender, non-distended, normal bowel sounds - Integumentary Integumentary: Present: clear, warm - Psychiatric Psychiatric: appropriate mood/affect, cooperative - Neurologic Neurologic: moves all extremities Results - Labs CBC & Chem 7: 11/22/21 20:13 11/22/21 20:13 Labs: Laboratory Last Values WBC 10.2 K/mm3 (4.5-11.0) 11/22/21 20:13 RBC 4.34 M/mm3 (3.65-5.03) 11/22/21 20:13 Hgb 12.6 gm/dl (11.8-15.2) 11/22/21 20:13 Hct 37.0 % (35.5-45.6) 11/22/21 20:13 MCV 85 fl (84-94) 11/22/21 20:13 MCH 29 pg (28-32) 11/22/21 20:13 MCHC 34 % (32-34) 11/22/21 20:13 RDW 13.7 % (13.2-15.2) 11/22/21 20:13 Plt Count 327 K/mm3 (140-440) 11/22/21 20:13 Lymph % (Auto) 31.3 % (13.4-35.0) 11/22/21 20:13 [place] % (Auto) 5.1 % (0.0-7.3) 11/22/21 20:13 Eos % (Auto) 0.1 % (0.0-4.3) 11/22/21 20:13 Baso % (Auto) 0.8 % (0.0-1.8) 11/22/21 20:13 Lymph # (Auto) 3.2 K/mm3 (1.2-5.4) 11/22/21 20:13 [place] # (Auto) 0.5 K/mm3 (0.0-0.8) 11/22/21 20:13 Eos # (Auto) 0.0 K/mm3 (0.0-0.4) 11/22/21 20:13 Baso # (Auto) 0.1 K/mm3 (0.0-0.1) 11/22/21 20:13 Seg Neutrophils % 62.7 % (40.0-70.0) 11/22/21 20:13 Seg Neutrophils # 6.4 K/mm3 (1.8-7.7) 11/22/21 20:13 VBG pH 7.316 (7.320-7.420) L 11/23/21 05:15 Sodium 133 mmol/L (137-145) L 11/22/21 20:13 Potassium 4.2 mmol/L (3.6-5.0) 11/22/21 20:13 Chloride 95.8 mmol/L (98-107) L 11/22/21 20:13 Carbon Dioxide 23 mmol/L (22-30) 11/22/21 20:13 Anion Gap 18 mmol/L 11/22/21 20:13 BUN 15 mg/dL (9-20) 11/22/21 20:13 Creatinine 0.8 mg/dL (0.8-1.3) 11/22/21 20:13 Estimated GFR > 60 ml/min 11/22/21 20:13 BUN/Creatinine Ratio 19 % 11/22/21 20:13 Glucose 472 mg/dL (75-100) H 11/22/21 20:13 POC Glucose 452 mg/dL (70-105) H 11/22/21 20:05 Ketones Quantitative Negative (Negative) 11/22/21 05:15 Calcium 9.7 mg/dL (8.4-10.2) 11/22/21 20:13 Total Bilirubin 1.20 mg/dL (0.1-1.2) 11/22/21 20:13 AST 16 units/L (5-40) 11/22/21 20:13 ALT 19 units/L (7-56) 11/22/21 20:13 Alkaline Phosphatase 452 units/L (35-129) H 11/22/21 20:13 Total Protein 6.9 g/dL (6.3-8.2) 11/22/21 20:13 Albumin 4.5 g/dL (3.9-5) 11/22/21 20:13 Albumin/Globulin Ratio 1.9 % 11/22/21 20:13 Lipase 36 units/L (13-60) 11/23/21 Unknown Urine Color Colorless (Yellow) 11/23/21 Unknown Urine Turbidity Clear (Clear) 11/23/21 Unknown Specific [place] (Man) 1.010 (1.003-1.030) 11/23/21 Unknown Ur Protein (Man) Negative mg/dL (Negative) 11/23/21 Unknown Ur Ketones (Man) Negative (Negative) 11/23/21 Unknown Ur Nitrite (Man) Negative (Negative) 11/23/21 Unknown Urine Bilirubin (Man) Moderate (Negative) 11/23/21 Unknown Leukocyte Esterase (Man) Negative (Negative) 11/23/21 Unknown Urine WBC (Auto) < 1.0 /HPF (0.0-6.0) 11/23/21 Unknown Urine RBC (Auto) 1.0 /HPF (0.0-6.0) 11/23/21 Unknown Urine RBC (Manual) Negative (Negative) 11/23/21 Unknown Urine Mucus Few /HPF 11/23/21 Unknown Active Medications - Current Medications Current Medications: Generic Name Dose Route Start Last Admin Trade Name Freq PRN Reason Stop Dose Admin Acetaminophen 650 mg 11/23/21 06:11 Acetaminophen 325 Mg Tab PO Q4H PRN Pain MILD(1-3)/Fever >100.5/WOODS Albuterol/Ipratropium 1 ampul 11/23/21 08:00 11/23/21 07:59 Ipratropium/Albuterol Sulfate 3 Ml Ampul.Neb IH 1 ampul Q6HRT [facility] Administration Dextrose 50 ml 11/23/21 06:14 Dextrose 50% In Water (25gm) 50 Ml Syringe IV Q30MIN PRN Hypoglycemia Protocol Famotidine 20 mg 11/23/21 10:00 Famotidine 20 Mg/2 Ml Inj IV BID CHERYL Sodium Chloride 1,000 mls @ 100 mls/hr 11/23/21 07:00 Nacl 0.45% 1000 Ml IV DIRECT [facility] Thiamine HCl 100 mg/ Folic 1,011.2 mls @ 250 mls/hr 11/23/21 06:20 Acid 1 mg/ Multivitamins/ IV 11/23/21 10:22 Minerals 10 ml/ Sodium DAILY ONE Chloride Insulin Human Lispro 0 unit 11/23/21 12:00 Insulin Lispro 100 Unit/Ml SUB-Q Q6HR [facility] Protocol Lisinopril 10 mg 11/23/21 10:00 Lisinopril 10 Mg Tab PO QDAY [facility] Morphine Sulfate 4 mg 11/23/21 05:43 11/23/21 06:04 Morphine 4 Mg/1 Ml Inj IV 4 mg Q4HR PRN Administration Pain , Severe (7-10) Morphine Sulfate 2 mg 11/23/21 06:11 Morphine 2 Mg/1 Ml Inj IV Q4H PRN Pain, Moderate (4-6) Ondansetron HCl 4 mg 11/23/21 06:11 Ondansetron 4 Mg/2 Ml Inj IV Q8H PRN Nausea And Vomiting Oxycodone/Acetaminophen 1 tab 11/23/21 05:41 Oxycodone /Acetaminophen 5-325mg Tab PO Q6H PRN Pain, Moderate (4-6) Sodium Chloride 10 ml 11/23/21 10:00 Sodium Chloride 0.9% 10 Ml Flush Syringe IV BID CHERYL Sodium Chloride 10 ml 11/23/21 06:11 Sodium Chloride 0.9% 10 Ml Flush Syringe IV PRN PRN LINE FLUSH
[2021-11-23] MEDS: LISINOPRIL 10 MG TAB PO SCH (10:30)
[2021-11-23] MEDS: oxyCODONE /ACETAMINOPHEN 5-325MG TAB PO PRN (10:30)
[2021-11-23] MEDS: FAMOTIDINE 20 MG/2 ML INJ IV SCH ×2 (10:30→22:18)
[2021-11-23] MEDS ORDERED: INSULIN LISPRO 100 UNIT/ML SUB-Q SCH (12:00)
[2021-11-23] MEDS: INSULIN LISPRO 100 UNIT/ML SUB-Q SCH ×2 (17:45→22:18)
[2021-11-23] MEDS: LIPASE 12,000/PROTEASE 38,000/AMYLASE 60,000 (UNITS) DR CAP PO SCH ×2 (17:46→17:57)
[2021-11-23] MEDS: MORPHINE 2 MG/1 ML INJ IV PRN (22:43)
[2021-11-23] MEDS: SODIUM CHLORIDE 0.9% 1000 ML 1,000 ML IV SCH (22:44)
[2021-11-24] MEDS: IPRATROPIUM/ALBUTEROL SULFATE 3 ML AMPUL.NEB IH SCH (01:28)
[2021-11-24] MEDS: MORPHINE 2 MG/1 ML INJ IV PRN ×2 (06:14→21:05)
[2021-11-24 06:28] LABS: Hemoglobin 11.7 gm/dl (11.8-15.2); Mean Corpuscular HGB Conc 34 % (32-34); Mean Corpuscular Volume 86 fl (84-94); Platelet Count 297 K/mm3 (140-440); Red Blood Count 4.05 M/mm3 (3.65-5.03)
[2021-11-24 06:55] LABS: Blood Urea Nitrogen 9 mg/dL (9-20); Calcium 9.1 mg/dL (8.4-10.2); Hemolysis Index 0
[2021-11-24 07:29] LABS: BUN/Creatinine Ratio 18
[2021-11-24] MEDS: LIPASE 12,000/PROTEASE 38,000/AMYLASE 60,000 (UNITS) DR CAP PO SCH ×3 (07:30→17:42)
[2021-11-24] MEDS ORDERED: INSULIN NPH/REGULAR 70/30 INJ SUB-Q SCH ×2 (08:00→10:00)
[2021-11-24 08:18] LABS: Band Neutrophils # (Manual) 0.1 K/mm3; Eosinophils % (Manual) 0 % (0.0-4.3); Total Cells Counted 100
[2021-11-24 08:19] LABS: Platelet Estimate Consistent w Auto; RBC Morphology Normal
[2021-11-24] MEDS: LISINOPRIL 10 MG TAB PO SCH (09:01)
[2021-11-24] MEDS: FAMOTIDINE 20 MG/2 ML INJ IV SCH ×2 (09:01→21:05)
[2021-11-24] MEDS: INSULIN LISPRO 100 UNIT/ML SUB-Q SCH ×4 (09:07→22:40)
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
[2021-11-24] MEDS: oxyCODONE /ACETAMINOPHEN 5-325MG TAB PO PRN (14:03)
[2021-11-24] MEDS: SODIUM CHLORIDE 0.9% 1000 ML 1,000 ML IV SCH (20:57)
[2021-11-25] MEDS: MORPHINE 2 MG/1 ML INJ IV PRN (05:43)
[2021-11-25] MEDS: SODIUM CHLORIDE 0.9% 1000 ML 1,000 ML IV SCH (05:51)
[2021-11-25] MEDS: LIPASE 12,000/PROTEASE 38,000/AMYLASE 60,000 (UNITS) DR CAP PO SCH ×2 (09:01→12:16)
[2021-11-25] MEDS: FAMOTIDINE 20 MG/2 ML INJ IV SCH (09:01)
[2021-11-25] MEDS: INSULIN LISPRO 100 UNIT/ML SUB-Q SCH ×2 (09:02→12:17)
[2021-11-25] MEDS: LISINOPRIL 10 MG TAB PO SCH (09:11)
[2021-11-25 09:12] VITALS: BP 130/85
--- NOTE | 2021-11-25 10:33 | Discharge Summary ---
Providers - Providers Date of Admission: 11/23/21 05:41 Date of discharge: 11/25/21 Attending physician: CODY CURRY 11/23/21 06:14 Consult to Dietitian/Nutrition [CONS] Routine Physician Instructions: Reason For Exam: Reason for Consult: Diet education Primary care physician: FERNANDO REMY Hospitalization Reason for admission: Abdominal pain and hyperglycemia Condition: Stable Pertinent studies: CT abdomen and pelvis with contrast Hospital course: 51-year-old male patient with significant past medical history of type 2 diabetes mellitus, chronic pancreatitis was admitted through emergency room with abdominal pain and hyperglycemia patient was noted to have very high blood sugars of 400 and above, patient claims compliance with his medications, CT abdomen and pelvis with contrast show chronic pancreatitis, satisfactory position of biliary stent, bili likely related to stent placement and nonspecific findings patient was admitted managed symptomatically Patient sugars closely monitored managed with Accu-Cheks sliding scale coverage ADA diet and long-acting insulin. Patient was on metformin 500 twice daily at home, however sugars were not getting control his hemoglobin A1c is 18.5 Advised the patient to switch to insulin at least for a few weeks, he refused a nd said his physician increased metformin from 500 to 1000 mg twice a day. Patient symptoms: Significantly improved Today he is stable no new complaints vital signs stable physical examination prior to discharge unremarkable Stable at discharge Discharge diagnosis: -- chronic pancreatitis IV fluids, pain medications, supportive care -- Acute abdominal pain Pain medications, antiemetics, IV fluids CT abdomen and pelvis, findings compatible with chronic pancreatitis satisfactory portion of biliary stent Open umbilical likely related to stent other nonacute findings as above --Type II diabetes melitis/uncontrolled Accu-Chek every 6 hours with Humalog moderate dose coverage. Diabetic education. Continue the home medication Possible home health nurse at discharge for disease monitoring --ETOH abuse We counseled regarding quit drinking. IV fluids Thiamine folic acid, monitor for withdrawal symptoms Counseling done advised to quit alcohol intake -- History of cholecystectomy Patient is status post stent placement. Supportive care -- DVT prophylaxis SCD for DVT prophylaxis. Pepcid 20 mg IV every 12 hours for GI prophylaxis. Patient is a full code --Advance care planning +30 minutes I discussed with the patient his condition tests and reports I discussed with the patient his diagnosis, I discussed his prognosis I also discussed the treatment plan as well as a discharge plan Discussed today discharge planning and follow-up visits and complaints with treatment Answered all his questions verbalized understanding Stable at discharge Disposition: 01 HOME / SELF CARE / HOMELESS Final Discharge Diagnosis (Prints w/discharge instructions): Chronic pancreatitis. Acute abdominal pain improved. type 2 diabetes mellitus well controlled now. EtOH abuse. History of cholecystectomy Time spent for discharge: 35 min Core Measure Documentation - Palliative Care Palliative Care/ Comfort Measures: Not Applicable - Core Measures Any of the following diagnoses?: none Exam - Constitutional Vitals: Temp Pulse Resp BP Pulse Ox 97.8 F 62 16 130/85 98 11/25/21 05:05 11/25/21 09:11 11/25/21 05:05 11/25/21 09:11 11/25/21 05:05 General appearance: Present: no acute distress, well-nourished - EENT Eyes: Present: PERRL, EOM intact - Neck Neck: Present: supple, normal ROM - Respiratory Respiratory effort: normal Respiratory: bilateral: diminished, negative: rales, rhonchi, wheezing - Cardiovascular Rhythm: regular Heart Sounds: Present: S1 & S2 - Extremities Extremities: no ischemia, No edema - Abdominal General gastrointestinal: Present: soft, non-tender, non-distended, normal bowel sounds - Integumentary Integumentary: Present: clear, warm - Musculoskeletal Musculoskeletal: strength equal bilaterally, generalized weakness - Psychiatric Psychiatric: appropriate mood/affect, cooperative - Neurologic Neurologic: CNII-XII intact, moves all extremities Plan Activity: no restrictions Diet: diabetic Additional Instructions: Advised to continue 1000 mg of metformin twice a day. Avoid hypoglycemia[low blood sugars] if your blood sugars do not get controlled, consider insulin, check with your primary care physician in 1 week. If you have worsening symptoms contact MD or go to the nearest emergency room as needed Follow up with: FERNANDO REMY MD [Primary Care Provider] - 7 Days Prescriptions: Omeprazole 20 mg PO DAILY #30 oxyCODONE /ACETAMINOPHEN [Percocet 5/325 mg] 1 tab PO BID PRN #8 tablet PRN Reason: Pain, Moderate (4-6)
[2021-11-25] MEDS: oxyCODONE /ACETAMINOPHEN 5-325MG TAB PO PRN (10:49)
== END 2021-11-25 14:18 | disposition home or self-care (01) | DRG 440 ==
LOC: ED 19:51 → 3A 11-23 05:41
PROVIDERS: ADMIT Hospitalist; ATTEND Internal Medicine
DX: K85.90 Acute pancreatitis without necrosis or infection, unspecified (principal); K21.9 Gastro-esophageal reflux disease without esophagitis; E11.65 Type 2 diabetes mellitus with hyperglycemia; K86.1 Other chronic pancreatitis; F10.10 Alcohol abuse, uncomplicated; Y90.9 Presence of alcohol in blood, level not specified; K86.89 Other specified diseases of pancreas; Z90.49 Acquired absence of other specified parts of digestive tract; Z82.49 Family history of ischemic heart disease and other diseases of the circulatory system; Z79.899 Other long term (current) drug therapy; Z79.84 Long term (current) use of oral hypoglycemic drugs
CPT/HCPCS: 36415; 74177; 80048; 80053; 81001; 82010; 82805; 82962; 83036; 83690; 85007; 85025; 87641; 94640; 94644; 99285; G0378; J3490; Q0177; Q9967; J1815; J2270; J2405; J3411; J7030

== ENCOUNTER 2021-11-26 22:15 | Emergency (ER) | payer SELFPAY ==
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
[2021-11-27 10:17] LABS: Basophils # (Auto) 0.1 K/mm3 (0.0-0.1); Basophils % (Auto) 1.8 % (0.0-1.8); Eosinophils # (Auto) 0.1 K/mm3 (0.0-0.4); Eosinophils % (Auto) 2.6 % (0.0-4.3); Hematocrit 40.6 % (35.5-45.6); Hemoglobin 13.7 gm/dl (11.8-15.2); Lymphocytes # (Auto) 2.4 K/mm3 (1.2-5.4); Mean Corpuscular HGB Conc 34 % (32-34); Mean Corpuscular Volume 86 fl (84-94); Monocytes # (Auto) 0.4 K/mm3 (0.0-0.8); Monocytes % (Auto) 6.9 % (0.0-7.3); Platelet Count 304 K/mm3 (140-440); Red Blood Count 4.72 M/mm3 (3.65-5.03); Red Cell Distribution Width 13.8 % (13.2-15.2)
[2021-11-27 10:35] LABS: Alanine Aminotransferase 16 units/L (7-56); Albumin 4.5 g/dL (3.9-5); Blood Urea Nitrogen 8 mg/dL (9-20); Calcium 9.6 mg/dL (8.4-10.2); Hemolysis Index 7
[2021-11-27 10:41] LABS: BUN/Creatinine Ratio 13
[2021-11-27] MEDS ORDERED: INSULIN REGULAR, HUMAN 100 UNITS/1 ML IV ONE ×2 (10:48→12:52)
[2021-11-27] MEDS ORDERED: SODIUM CHLORIDE 0.9% 1000 ML 1,000 ML IV ONE (10:48)
[2021-11-27 11:16] LABS: Color,Urine Straw (Yellow)
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
[2021-11-27 11:57] LABS: Mucus,Urine FEW /HPF
--- NOTE | 2021-11-27 13:20 | Electrocardiograph Report ---
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
[2021-11-27 15:24] VITALS: BP 119/82
== END 2021-11-27 15:22 | disposition home or self-care (01) ==
LOC: ED 22:15
DX: K86.1 Other chronic pancreatitis (principal); E11.65 Type 2 diabetes mellitus with hyperglycemia; I10 Essential (primary) hypertension; E11.9 Type 2 diabetes mellitus without complications; K21.9 Gastro-esophageal reflux disease without esophagitis; Z90.49 Acquired absence of other specified parts of digestive tract; F17.200 Nicotine dependence, unspecified, uncomplicated
CPT/HCPCS: 36415; 71046; 80053; 81001; 82010; 82962; 83690; 84484; 85025; 93005; 96361; 96374; 99284; J7030; Q9967; J1815